=== PATIENT | female | born 1975 | race Caucasian/White ===

== ENCOUNTER → 2018-08-08 | Outpatient (CLI) | payer OTHER ==
--- NOTE | 2018-08-08 16:56 | KCIC ---
MRI Cervical Spine Without Contrast History: Cervicalgia, progressive neck pain into the shoulders and scapula Technique: Multiplanar, multi sequential noncontrast MR imaging was performed of the cervical spine. Comparison: None Findings: There is motion degradation even for repeated images. Cervical vertebral body stature is overall maintained. There is straightening of the cervical spine. Cervical cord caliber is within normal limits, no obvious expansile signal change, limited evaluation for subtle signal change due to motion. There is a small focus of nonspecific fluid at the inferior margin of adenoids, does not directly abut the spine, about 1.4 cm CC by 0.4 cm AP. There is mild degenerative disc disease C5-6. There is negligible anterior spondylolisthesis C3-4. There is no significant marrow edema. There is posterior annular tear at C5-6. There is very mild cervical dextroscoliosis. As seen on axial T2 sequence image 32 series 12, not fully included, there is an approximate 1.9 cm AP by 1.3 cm transverse focus of T2 hyperintense signal posterior right paraspinous soft tissues near the level of T1 and T2. C2-C3: Spinal canal and neural foramina are adequate. C3-C4: Spinal canal and neural foramina are adequate. C4-C5: Neural foramina and spinal canal are adequate. C5-C6: There is negligible posterior right paracentral protrusion measuring about 1 to 2 mm AP, spinal canal adequate. Neural foramina are adequate. C6-C7: Neural foramina and spinal canal are adequate. C7-T1: Spinal canal and neural foramina are adequate. Impression: 1. There is no significant cervical spinal stenosis. There is very shallow right paracentral protrusion at C5-6 associated with annular tear. There is mild degenerative disc disease C5-6. 2. Not fully included on any of the images, there is T2 hyperintense lesion of the posterior paraspinous soft tissues near the T1-2 level concerning for underlying lesion or mass for which directed MR evaluation for soft tissue mass is recommended. Electronically signed by: Terry Petty MD (08/08/2018 4:53 PM) [email or web address]
== END | disposition home or self-care (01) ==
LOC: KCIC MRI 14:39
PROVIDERS: ATTEND Family Medicine
DX: M50.322 Other cervical disc degeneration at C5-C6 level (principal); M50.222 Other cervical disc displacement at C5-C6 level; M43.12 Spondylolisthesis, cervical region; M41.82 Other forms of scoliosis, cervical region
CPT/HCPCS: 72141

== ENCOUNTER → 2018-09-19 | Outpatient (CLI) | payer OTHER ==
--- NOTE | 2018-09-20 17:16 | KCIC ---
MRI Thoracic Spine without contrast History: Lesion at T1-T2, neck and back pain Technique: Multiplanar, multi sequential noncontrast MR imaging was performed of the thoracic spine. Comparison: Cervical spine exam August 08, 2018 Findings: There is some motion. Thoracic vertebral body stature and AP alignment are maintained. Thoracic cord caliber is within normal limits without defined or expansile signal abnormality. There is no significant focal posterior disc abnormality of the thoracic spine, no significant thoracic spinal stenosis at any level. There is no significant marrow edema. Intervertebral disc spaces are relatively preserved. There is mild S-shaped scoliosis of the thoracic spine. Thoracic neural foramina are overall adequate. As seen on previous exam, there is STIR hyperintense lesion about 1.6 cm transverse by 1.1 cm AP by 1.3 cm cc, somewhat stippled appearance. This does not result in significant invasion of adjacent muscle, located anterior to the right rhomboid major muscle. Impression: 1. There is no significant thoracic spinal stenosis or neural foramina compromise. 2. There is again lesion anterior to the right rhomboid muscle. While nonspecific, primary consideration would be a hemangioma given overall appearance. If there is pain referable to this region, follow-up to assess stability could be performed such as in 6 months. Electronically signed by: Terry Petty MD (09/20/2018 5:13 PM) [email or web address]
== END | disposition home or self-care (01) ==
LOC: KCIC MRI 16:27
PROVIDERS: ATTEND Family Medicine
DX: M41.84 Other forms of scoliosis, thoracic region (principal)
CPT/HCPCS: 72146

== ENCOUNTER 2018-12-22 11:16 | Inpatient (IN) | payer OTHER ==
[~2018-12-22] VITALS: Ht 157.5 cm; Wt 107.7 kg
[2018-12-22] MEDS ORDERED: PROCHLORPERAZINE 10 MG/2 ML VIAL. IV PRN (13:15)
[2018-12-22] MEDS ORDERED: ONDANSETRON ODT 4 MG TAB.RAPDIS. PO PRN (13:15)
--- NOTE | 2018-12-22 13:15 | PDOC1 ---
History and Physical Date of Admission Date of Admission DATE: 12/22/18 TIME: 13:15 Identification/Chief Complaint Chief Complaint Abdominal pain, fevers Source Source: Patient History of Present Illness History of Present Illness Ms Crowell is a 43 yo F w/ PMHx hypothyroidism, anemia admitted to [place] with 3-4 day history of chest pain as well as elevated temperatures upwards of 103 at home. Found with fever of 102.4F. Had elevated d dimer and underwent CTPA that was negative for PE, and was seen by cardiology, ruled out TX. She initially c/o chest pain was 10/10 that was pleuritic. She was complaining of wheezing and tightness. The patient unfortunately does continue to smoke and she has been recommended numerous times to stop smoking. The patient had multiple other complaints including a severe headache, underwent CT head which was negative. Otherwise, patient is complaining of some nausea and generalized abdominal pain 10/10. The patient was advised to transfer to facility where GI and ID services were available. Past Medical History Cardiovascular: No pertinent hx Pulmonary: No pertinent hx GI: No pertinent hx Heme/Onc: Anemia NOS Hepatobiliary: No pertinent hx Psych: No pertinent hx Infectious disease: No pertinent hx ENT: No pertinent hx Renal/: No pertinent hx Endocrine: Hypothyroidism Dermatology: No pertinent hx Past Surgical History Past Surgical History: Appendectomy, Cholecystectomy, (x2), Tubal Ligation Family History Family History: Asthma (Mother), Coronary Artery Disease (Mother) Social History Smoke: 1 pack per day ALCOHOL: rare Drugs: None Allergies Allergies: Coded Allergies: Penicillins (Verified Allergy, Intermediate, rash, 12/22/18) clindamycin (Verified Allergy, Intermediate, rash, 12/22/18) ROS General: YES: Fatigue, Malaise, Appetite; No: Chills, Night Sweats, Other PSYCHOLOGICAL ROS: YES: Anxiety, Behavioral Disorder; No: Concentration difficultie, Decreased libido, Depression, Disorientation, Hallucinations, Hostility, Irritablity, Memory difficulties, Mood Swings, Obsessive thoughts, Physical abuse, Sexual abuse, Sleep disturbances, Suicidal ideation, Other Eyes: No Blurry vision, No Decreased vision, No Double vision, No Dry eyes, No Excessive tearing, No Eye Pain, No Itchy Eyes, No Loss of vision, No Photophobia, No Scotomata, No Uses contacts, No Uses glasses, No Other HEENT: YES: Heacaches; No: Visual Changes, Hearing change, Nasal congestion, Nasal discharge, Oral lesions, Sinus pain, Sore Throat, Epistaxis, Sneezing, Snoring, Tinnitus, Vertigo, Vocal changes, Other ALLERGY AND IMMUNOLOGY: No: Hives, Insect Bite Sensitivity, Itchy/Watery Eyes, Nasal Congestion, Post Nasal Drip, Seasonal Allergies, Other Hematological and Lymphatic: No: Bleeding Problems, Blood Clots, Blood Transfusions, Brusing, Night Sweats, Pallor, Swollen Lymph Nodes, Other ENDOCRINE: No: Breast Changes, Galactorrhea, Hair Pattern Changes, Hot Flashes, Malaise/lethargy, Mood Swings, Palpitations, Polydipsia/polyuria, Skin Changes, Temperature Intolerance, Unexpected Weight Changes, Other Breast: No New/Changing Breast Lumps, No Nipple changes, No Nipple discharge, No Other Respiratory: No: Cough, Hemoptysis, Orthopnea, Pleuritic Pain, Shortness of breath, SOB with excertion, Sputum Changes, Stridor, Tachypnea, Wheezing, Other Cardiovascular: yes Chest Pain; No Palpitations, No Orthopnea, No Paroxysmal Noc. Dyspnea, No Edema, No Lt Headedness, No Other Gastrointestinal: Yes Nausea, Yes Abdominal Pain; No Vomiting, No Diarrhea, No Constipation, No Melena, No Hematochezia, No Other Genitourinary: No Dysuria, No Frequency, No Incontinence, No Hematuria, No Retention, No Discharge, No Urgency, No Pain, No Flank Pain, No Other, No , No , No , No , No , No , No Musculoskeletal: No Gait Disturbance, No Joint Pain, No Joint Stiffness, No Joint Swelling, No Muscle Pain, No Muscular Weakness, No Pain In:, No Swelling In:, No Other Neurological: No Behavorial Changes, No Bowel/Bladder ControlChng, No Confusion, No Dizziness, No Gait Disturbance, No Headaches, No Impaired Coord/balance, No Memory Loss, No Numbness/Tingling, No Seizures, No Speech Problems, No Tremors, No Visual Changes, No Weakness, No Other Skin: No Dry Skin, No Eczema, No Hair Changes, No Lumps, No Mole Changes, No Mottling, No Nail Changes, No Pruritus, No Rash, No Skin Lesion Changes, No Other, No Acne VTE Prophylaxis Ordered VTE Prophylaxis Devices: No VTE Pharmacological Prophylaxi: Yes Assessment/Plan Assessment/Plan A/P: Chest pain - ruled out TX Fevers/chills - flu negative. Symptoms sound suspicious for mononucleosis, will check EBV and CMV Hypothyroidism - nearly full replacement with 150mcg daily Anemia - on chronic iron therapy Elevated transaminases - concerning for mono. GI consulted Splenomegaly - noted on CT UTI - on empiric antibiotics for the past 2 days Family history of CAD - noted Sepsis of unknown etiology Abdominal discomfort with nausea FEN - NPO PPX - lovenox FULL CODE Dispo - inpatient for fever and abdominal pain RADHA KUNZ MD Dec 22, 2018 13:15
[2018-12-22 13:31] VITALS: BP 131/96
--- NOTE | 2018-12-22 14:25 | PDOC2 ---
GI CONSULT Reason For Consult: intractable abd pain HPI: HPI: 43 y/o female sent from [facility]. Ill since "before Wednesday" with fever, cough, aching sides, midchest and upper abd discomfort, and n/v. Can't keep anything down - even apple juice this morning. Was told she would have a scope today and if that's not happening she wants a drink. She is very concerned that she hasn't taking her thyroid or iron pills for two days. She just wants to feel better - "I am impatient." No reflux or dysphagia. No hematemesis, hematochezia, or melena. Occasional constipation related to iron improved w/ stool softeners. No diarrhea or weight loss. No chronic GI issues. Has some bruising in lower abdomen "from blood thinner shots." S/p cholecystectomy for stones. No liver, pancreas, or PUD history. H/o AMI on iron TID. No previous EGD or colonoscopy. H/o irregular/heavy periods "sometimes." Recent cardiac workup (echo for abnormal EKG she says) was un revealing. Normal Hgb (last checked 12/20), normal WBC. Bili 2.8, direct 0.6, AST 98, ALT 144, Alk Phos 114, TSH 6. Viral Hepatitis panel negative. CTA chest for elevated d-dimer w/o PE and noted splenomegaly. CT A/P showed splenomegaly, fullness of left adnexa, probable left liver cyst. PMH: PMH: anemia, hypothyroidism, pneumonia appendectomy, cholecystectomy, x 2, tubal ligation FH: Family History: No pertinent hx (deneis GI cancers), CAD Social History: Smoke: No ALCOHOL: none Drugs: None ROS: GEN: +fever HEENT: Denies blurred vision, sore throat CV: +chest pain RESP: +cough GI: Per HPI : Denies hematuria, dysuria ENDO: Denies weight changes NEURO: Denies confusion, dizziness MSK: Denies weakness, joint pain/swelling SKIN: Denies jaundice, pruritus Vitals: Vitals: Vital Signs Date Time Temp Pulse Resp B/P (MAP) Pulse Ox O2 Delivery O2 Flow Rate FiO2 12/22/18 13:31 99.7 82 18 131/96 (108) 96 Room Air 99.7 Allergies: Coded Allergies: Penicillins (Verified Allergy, Intermediate, rash, 12/22/18) clindamycin (Verified Allergy, Intermediate, rash, 12/22/18) Medications: Current Medications Medications (Trade) Dose Ordered Sig/Nancy Route PRN Reason Start Time Stop Time Status Last Admin Dose Admin Prochlorperazine Edisylate (Compazine) 10 mg PRN Q6HRS PRN IV NAUSEA/VOMITING 12/22/18 13:15 12/22/18 14:18 PE: GEN: occasional retching in emesis basin HEENT: Atraumatic, PERRL LUNGS: CTAB HEART: RRR ABD: obese - difficult exam due to sitting/retching - tenderness to left side EXTREMITY: No edema SKIN: No rashes, no jaundice NEURO/PSYCH: A & O 3, tearful A/P: A/P: Fever, abd pain, n/v, cough Elevated LFTs, splenomegaly H/o AMI - no previous 'scopes, on iron TID CRC screen - average risk S/p cholecystectomy -- Very emotional, doesn't feel well. Abd US ordered. Check EBV, CMV. Will proceed w/ EGD as well. GLADYS PHILIPPE Dec 22, 2018 14:25
[2018-12-22 15:00] VITALS: BP 151/99
[2018-12-22] MEDS: ENOXAPARIN 40 MG/0.4 ML SYRINGE. SQ SCH (15:00)
[2018-12-22] MEDS ORDERED: IV RINGERS,LACTATED 1000ML 1,000 ML IV ONE ×2 (15:45)
[2018-12-22 15:52] LABS: MONONUCLEOSIS PATIENT NEGATIVE (NEGATIVE)
[2018-12-22 16:10] LABS: ALBUMIN 3.1 g/dL (3.4-5.0); ALBUMIN/GLOBULIN RATIO 0.7 (1.0-1.7); CALCIUM 8.3 mg/dL (8.5-10.1); CREATININE 0.9 mg/dL (0.6-1.0); GFR 68.7; POTASSIUM 3.9 mmol/L (3.5-5.1); TOTAL BILIRUBIN 1.1 mg/dL (0.2-1.0); TOTAL PROTEIN 7.8 g/dL (6.4-8.2)
--- NOTE | 2018-12-22 16:15 | RAD ---
ABDOMEN COMPLETE History: Acute abdominal pain. Comparison: CT December 11, 2018. Technique: Sonographic examination of the abdomen was performed and multiple grayscale and color Doppler static images were obtained. Findings: Hyperechoic lesion within the left hepatic lobe measures 2.2 x 2.1 x 2.3 cm. The liver measures 18.5 cm. Portal flow is patent Common bile duct is normal in caliber, measuring 3.3 mm in diameter. Prior cholecystectomy. Visualized pancreas is not well seen due to overlying bowel gas. The right kidney is normal in echotexture and measures 12.4 x 4.6 x 5.4 cm. The left kidney is normal in echotexture and measures 14.0 x 5.5 x 6.0 cm. No hydronephrosis. No solid renal mass or cyst. No calculus. The spleen measures 16.7 cm. Aorta and IVC not well seen due to overlying bowel gas. IMPRESSION: 1. Hepatosplenomegaly. 2. Hyperechoic liver lesion, most likely hemangioma. 3. Prior cholecystectomy. Electronically signed by: Alejandro Hackett DO (12/22/2018 4:12 PM) [facility]
[2018-12-22] MEDS ORDERED: LIDOCAINE 1% PF 2 ML VIAL. ONE (16:40)
[2018-12-22] MEDS ORDERED: PROPOFOL 20 ML IV ONE (16:40)
--- NOTE | 2018-12-22 17:11 | PDOC4 ---
PROCEDURE Procedure EGD/biopsies Indication: N, V. H/o anemia on iron w/o w/u. Meds: per anesthesia. Findings: E--multiple small patches entire esophagus ~1mm each suggestive of infectious esophagitis, biopsied. G--Normal. Antral biopsies re: her anemia D--Normal to second portion. Biopsies second portion. Mehnaz well. IMP: Infectious esophagitis? Biopsies pending. Some GERD element. REC: PPI Await biopsies, other test results. OK to try diet. CAMILA HTOMAS MD Dec 22, 2018 17:11
[2018-12-22] MEDS: PANTOPRAZOLE 40 MG TABLET.DR. PO SCH (17:30)
[2018-12-22 19:00] VITALS: BP 135/92
[2018-12-22] MEDS: IPRATRPIUM/ALBUTEROL 0.5/2.5MG 3 ML NEBU. NEB SCH ×2 (19:53→19:54)
[2018-12-22] MEDS: TEMAZEPAM 15 MG CAPSULE PO SCH (20:42)
[2018-12-22] MEDS: ACETAMINOPHEN 325 MG TABLET. PO PRN (22:16)
[2018-12-22 23:00] VITALS: BP 161/106
[2018-12-23 03:00] VITALS: BP 145/99
[2018-12-23] MEDS: LEVOTHYROXINE 150 MCG TABLET PO SCH (06:45)
[2018-12-23] MEDS: ACETAMINOPHEN 325 MG TABLET. PO PRN ×3 (06:45→18:52)
[2018-12-23 07:00] VITALS: BP 128/87
[2018-12-23] MEDS: IPRATRPIUM/ALBUTEROL 0.5/2.5MG 3 ML NEBU. NEB SCH ×4 (07:38→19:53)
--- NOTE | 2018-12-23 08:15 | NUR ---
SW following pt for dc planning. Chart reviewed. Pt lives at home with family. GI following. No SW needs identified at this time. Will continue to follow as needed.
[2018-12-23] MEDS: IRON POLYSACCHARIDE COMPLEX 150 MG CAPSULE PO SCH (09:13)
[2018-12-23] MEDS: PANTOPRAZOLE 40 MG TABLET.DR. PO SCH (09:14)
--- NOTE | 2018-12-23 10:45 | PDOC ---
Infectious Disease Note Vital Sign Vital Signs Vital Signs Date Time Temp Pulse Resp B/P (MAP) Pulse Ox O2 Delivery O2 Flow Rate FiO2 12/23/18 07:40 99 Room Air 12/23/18 07:00 99.7 91 20 128/87 (101) 99.7 12/22/18 17:08 2 Labs Lab Laboratory Tests Test 12/22/18 15:10 Sodium Level 138 mmol/L (136-145) Potassium Level 3.9 mmol/L (3.5-5.1) Chloride Level 103 mmol/L (98-107) Carbon Dioxide Level 26 mmol/L (21-32) Anion Gap 9 (6-14) Blood Urea Nitrogen 11 mg/dL (7-20) Creatinine 0.9 mg/dL (0.6-1.0) Estimated GFR (Cockcroft-Gault) 68.7 BUN/Creatinine Ratio 12 (6-20) Glucose Level 102 mg/dL (70-99) Calcium Level 8.3 mg/dL (8.5-10.1) Total Bilirubin 1.1 mg/dL (0.2-1.0) Aspartate Amino Transf (AST/SGOT) 268 U/L (15-37) Alanine Aminotransferase (ALT/SGPT) 332 U/L (14-59) Alkaline Phosphatase 150 U/L (46-116) Total Protein 7.8 g/dL (6.4-8.2) Albumin 3.1 g/dL (3.4-5.0) Albumin/Globulin Ratio 0.7 (1.0-1.7) Heterophil Agglutinins Negative (NEGATIVE) Objective Assessment Fever ? Viral Transaminitis Hepatosplenomegaly Abx allergies - PCN - tolerates amox. Clinda - rash Hypothyroidism Esophageal plaques Plan Plan of Care Azithromycin Sed rate/Procalcitonin Resp viral panel Check EBV/CMV serologies /Legionella antigen/mycoplasma F/u labs and U/S [facility] notes reviewed Thank you # [id number] BASHIR SALAZAR MD Dec 23, 2018 10:45
[2018-12-23 11:00] VITALS: BP 135/90
[2018-12-23] MEDS ORDERED: AZITHROMYCIN 250 MG TABLET. PO ONE (11:00)
--- NOTE | 2018-12-23 11:37 | RAD ---
PELVIS COMPLETE History: Left adnexal cyst. Comparison: None. Technique: Grayscale and color Doppler imaging of the pelvis was performed using transabdominal technique. Patient refused transvaginal imaging. Findings: The uterus measures 10.0 x 6.3 x 4.4 cm in length. Limited visualization on transabdominal technique. Endometrium not well seen. Bilateral ovaries not identified due to overlying bowel gas and positioning. IMPRESSION: 1. Degraded evaluation on transabdominal imaging. Patient refused transvaginal imaging. 2. Bilateral ovaries and endometrium not well identified. If persistent clinical concern recommend transvaginal imaging. Electronically signed by: Alejandro Hackett DO (12/23/2018 11:34 AM) [facility]
--- NOTE | 2018-12-23 12:38 | PDOC ---
G I PROGRESS NOTE Subjective Left-sided pain, positional/worse if coughs. Nauseated and taking po poorly. Denies odynophagia. Physical Exam Lungs clear. RRR Abdomen soft, not distended. Review of Relevant I have reviewed the following items debora (where applicable) has been applied. Labs Laboratory Tests Test 12/22/18 15:10 Sodium Level 138 mmol/L (136-145) Potassium Level 3.9 mmol/L (3.5-5.1) Chloride Level 103 mmol/L (98-107) Carbon Dioxide Level 26 mmol/L (21-32) Anion Gap 9 (6-14) Blood Urea Nitrogen 11 mg/dL (7-20) Creatinine 0.9 mg/dL (0.6-1.0) Estimated GFR (Cockcroft-Gault) 68.7 BUN/Creatinine Ratio 12 (6-20) Glucose Level 102 mg/dL (70-99) Calcium Level 8.3 mg/dL (8.5-10.1) Total Bilirubin 1.1 mg/dL (0.2-1.0) Aspartate Amino Transf (AST/SGOT) 268 U/L (15-37) Alanine Aminotransferase (ALT/SGPT) 332 U/L (14-59) Alkaline Phosphatase 150 U/L (46-116) Total Protein 7.8 g/dL (6.4-8.2) Albumin 3.1 g/dL (3.4-5.0) Albumin/Globulin Ratio 0.7 (1.0-1.7) Heterophil Agglutinins Negative (NEGATIVE) Laboratory Tests Test 12/22/18 15:10 Sodium Level 138 mmol/L (136-145) Potassium Level 3.9 mmol/L (3.5-5.1) Chloride Level 103 mmol/L (98-107) Carbon Dioxide Level 26 mmol/L (21-32) Anion Gap 9 (6-14) Blood Urea Nitrogen 11 mg/dL (7-20) Creatinine 0.9 mg/dL (0.6-1.0) Estimated GFR (Cockcroft-Gault) 68.7 BUN/Creatinine Ratio 12 (6-20) Glucose Level 102 mg/dL (70-99) Calcium Level 8.3 mg/dL (8.5-10.1) Total Bilirubin 1.1 mg/dL (0.2-1.0) Aspartate Amino Transf (AST/SGOT) 268 U/L (15-37) Alanine Aminotransferase (ALT/SGPT) 332 U/L (14-59) Alkaline Phosphatase 150 U/L (46-116) Total Protein 7.8 g/dL (6.4-8.2) Albumin 3.1 g/dL (3.4-5.0) Albumin/Globulin Ratio 0.7 (1.0-1.7) Heterophil Agglutinins Negative (NEGATIVE) Bili down. LFT's about the same. Biopsies pending. Vitals/I & O Vital Sign - Last 24 Hours 12/22/18 12/22/18 12/22/18 12/22/18 13:31 15:00 15:32 17:08 Temp 99.7 99.8 100.2 101.0 99.7 99.8 100.2 101.0 Pulse 82 85 87 89 Resp 18 18 18 20 B/P (MAP) 131/96 (108) 151/99 (116) 132/83 Pulse Ox 96 96 94 96 O2 Delivery Room Air Room Air Nasal Cannula O2 Flow Rate 2 12/22/18 12/22/18 12/22/18 12/22/18 17:19 19:00 19:54 23:00 Temp 99.6 100.5 99.6 100.5 Pulse 88 92 103 Resp 20 20 24 B/P (MAP) 141/78 135/92 (106) 161/106 (124) Pulse Ox 92 95 97 94 O2 Delivery Room Air Room Air Room Air Room Air 12/23/18 12/23/18 12/23/18 12/23/18 03:00 07:00 07:40 11:00 Temp 99.8 99.7 100.5 99.8 99.7 100.5 Pulse 90 91 85 Resp 20 20 16 B/P (MAP) 145/99 (114) 128/87 (101) 135/90 (105) Pulse Ox 94 92 99 93 O2 Delivery Room Air Room Air Room Air Room Air 12/23/18 11:24 Pulse Ox 99 O2 Delivery Room Air Intake and Output 12/22/18 12/22/18 12/23/18 15:00 23:00 07:00 Intake Total 520 ml 500 ml Balance 520 ml 500 ml Problem List Problems Medical Problems: (1) Anemia Status: Chronic (2) CAD (coronary artery disease) Status: Chronic (3) Chest pain Status: Acute (4) Chills with fever Status: Acute (5) Elevated transaminase level Status: Chronic (6) Hypothyroidism Status: Chronic (7) Sepsis Status: Acute (8) Splenomegaly Status: Acute (9) UTI (urinary tract infection) Status: Acute Assessment Viral esophagitis? Suspect mono-like syndrome, serologies pending. Some GERD component. AMI, chronic Poor po intake; needs IVF's? Plan of Care Note Continue PPI. IVF's if not adequate po. Await biopsies, pending serologies. CAMILA THOMAS MD Dec 23, 2018 12:38
[2018-12-23] MEDS ORDERED: IV DEXTROSE 5 %-0.45 % NACL 1,000 ML IV SCH (13:30)
[2018-12-23] MEDS: IV DEXTROSE 5 %-0.45 % NACL 1,000 ML IV SCH ×2 (13:32→21:42)
[2018-12-23 14:28] LABS: MYCOPLASMA PATIENT NEGATIVE (NEGATIVE)
[2018-12-23 15:00] VITALS: BP 120/74
[2018-12-23] MEDS: ENOXAPARIN 40 MG/0.4 ML SYRINGE. SQ SCH (15:00)
--- NOTE | 2018-12-23 15:39 | RAD ---
RIBS LEFT History: Left-sided rib pain. Technique: 4 views of the left ribs. Comparison: None. Findings: Normal alignment. No displaced rib fractures. Imaged lungs are unremarkable. Surgical clips right upper quadrant. Impression: 1. No displaced rib fractures. Electronically signed by: Alejandro Hackett DO (12/23/2018 3:36 PM) [facility]
--- NOTE | 2018-12-23 15:58 | PDOC ---
PROGRESS NOTES Chief Complaint Chief Complaint Chest pain - ruled out [place] myalgia, consider MONO Fevers/chills - flu negative pending EBV and CMV Hypothyroidism - Anemia - on chronic iron therapy Elevated transaminases - concerning for mono. GI consulted Splenomegaly - could be source of pain UTI - on empiric antibiotics SIRS Abdominal discomfort with nausea obese, BMI 44 History of Present Illness History of Present Illness weakness, lethargy, nausea, myalgia, mono clinically she had many questions Vitals Vitals Vital Signs Date Time Temp Pulse Resp B/P (MAP) Pulse Ox O2 Delivery O2 Flow Rate FiO2 12/23/18 15:53 98 Room Air 12/23/18 11:00 100.5 85 16 135/90 (105) 100.5 12/22/18 17:08 2 Physical Exam General: Oriented X3, Cooperative, mild distress Heart: Normal S1 Lungs: Wheezing Extremities: No cyanosis Labs LABS Laboratory Tests Test 12/23/18 12:00 Erythrocyte Sedimentation Rate 58 (0-25) Procalcitonin 0.17 ng/mL (0.00-0.10) Mycoplasma Serology (LAB) Negative (NEGATIVE) Assessment and Plan Assessmemt and Plan Problems Medical Problems: (1) Anemia Status: Chronic (2) CAD (coronary artery disease) Status: Chronic (3) Chest pain Status: Acute (4) Chills with fever Status: Acute (5) Elevated transaminase level Status: Chronic (6) Hypothyroidism Status: Chronic (7) Sepsis Status: Acute (8) Splenomegaly Status: Acute (9) UTI (urinary tract infection) Status: Acute Comment Review of Relevant I have reviewed the following items debora (where applicable) has been applied. Labs Laboratory Tests Test 12/22/18 15:10 12/23/18 12:00 Sodium Level 138 mmol/L (136-145) Potassium Level 3.9 mmol/L (3.5-5.1) Chloride Level 103 mmol/L (98-107) Carbon Dioxide Level 26 mmol/L (21-32) Anion Gap 9 (6-14) Blood Urea Nitrogen 11 mg/dL (7-20) Creatinine 0.9 mg/dL (0.6-1.0) Estimated GFR (Cockcroft-Gault) 68.7 BUN/Creatinine Ratio 12 (6-20) Glucose Level 102 mg/dL (70-99) Calcium Level 8.3 mg/dL (8.5-10.1) Total Bilirubin 1.1 mg/dL (0.2-1.0) Aspartate Amino Transf (AST/SGOT) 268 U/L (15-37) Alanine Aminotransferase (ALT/SGPT) 332 U/L (14-59) Alkaline Phosphatase 150 U/L (46-116) Total Protein 7.8 g/dL (6.4-8.2) Albumin 3.1 g/dL (3.4-5.0) Albumin/Globulin Ratio 0.7 (1.0-1.7) Heterophil Agglutinins Negative (NEGATIVE) Erythrocyte Sedimentation Rate 58 (0-25) Procalcitonin 0.17 ng/mL (0.00-0.10) Mycoplasma Serology (LAB) Negative (NEGATIVE) Laboratory Tests Test 12/23/18 12:00 Erythrocyte Sedimentation Rate 58 (0-25) Procalcitonin 0.17 ng/mL (0.00-0.10) Mycoplasma Serology (LAB) Negative (NEGATIVE) Medications Current Medications Prochlorperazine Edisylate (Compazine) 10 mg PRN Q6HRS PRN IV NAUSEA/VOMITING Last administered on 12/22/18at 14:18; Start 12/22/18 at 13:15 Ondansetron HCl (Zofran Odt) 4 mg PRN Q6HRS PRN PO NAUSEA/VOMITING Last administered on 12/22/18at 20:43; Start 12/22/18 at 13:15 Albuterol/ Ipratropium (Duoneb) 3 ml RTQID NEB Last administered on 12/23/18at 15:53; Start 12/22/18 at 16:00 Acetaminophen (Tylenol) 650 mg PRN Q4HRS PRN PO TEMP OVER 100.4F OR MILD PAIN Last administered on 12/23/18at 13:25; Start 12/22/18 at 13:30 Enoxaparin Sodium (Lovenox 40mg Syringe) 40 mg Q24H SQ ; Start 12/22/18 at 15:00 Levothyroxine Sodium (Synthroid) 150 mcg DAILY06 PO Last administered on 12/23/18at 06:45; Start 12/23/18 at 06:00 Polysaccharide Iron Complex (Niferex 150) 150 mg DAILY PO Last administered on 12/23/18at 09:13; Start 12/23/18 at 09:00 Ringer's Solution 1,000 ml @ 75 mls/hr 1X ONCE IV ; Start 12/22/18 at 15:45; Stop 12/22/18 at 17:20; Status DC Ringer's Solution 1,000 ml @ 75 mls/hr 1X ONCE IV ; Start 12/22/18 at 15:45; Stop 12/22/18 at 17:20; Status DC Propofol 20 ml @ As Directed STK-MED ONCE IV ; Start 12/22/18 at 16:40; Stop 12/22/18 at 16:40; Status DC Lidocaine HCl (Xylocaine-Mpf 1% 2ml Vial) 2 ml STK-MED ONCE .ROUTE ; Start 12/22/18 at 16:40; Stop 12/22/18 at 16:40; Status DC Pantoprazole Sodium (Protonix) 40 mg DAILYAC PO Last administered on 12/23/18at 09:14; Start 12/22/18 at 17:30 Temazepam (Restoril) 15 mg HS PO Last administered on 12/22/18at 20:42; Start 12/22/18 at 21:00 Azithromycin (Zithromax) 500 mg 1X ONCE PO Last administered on 12/23/18at 13:25; Start 12/23/18 at 11:00; Stop 12/23/18 at 11:01; Status DC Oxycodone/ Acetaminophen (Percocet 5/325) 1 tab PRN Q4HRS PRN PO PAIN; Start 12/23/18 at 11:30 Dextrose/Sodium Chloride 1,000 ml @ 150 mls/hr Q6H40M IV ; Start 12/23/18 at 13:30 Dextrose/Sodium Chloride 1,000 ml @ 150 mls/hr Q6H40M IV ; Start 12/23/18 at 13:30; Stop 12/23/18 at 13:33; Status DC Vitals/I & O Vital Sign - Last 24 Hours 12/22/18 12/22/18 12/22/18 12/22/18 17:08 17:19 19:00 19:54 Temp 101.0 99.6 101.0 99.6 Pulse 89 88 92 Resp 20 20 20 B/P (MAP) 132/83 141/78 135/92 (106) Pulse Ox 96 92 95 97 O2 Delivery Nasal Cannula Room Air Room Air Room Air O2 Flow Rate 2 12/22/18 12/23/18 12/23/18 12/23/18 23:00 03:00 07:00 07:40 Temp 100.5 99.8 99.7 100.5 99.8 99.7 Pulse 103 90 91 Resp 24 20 20 B/P (MAP) 161/106 (124) 145/99 (114) 128/87 (101) Pulse Ox 94 94 92 99 O2 Delivery Room Air Room Air Room Air Room Air 12/23/18 12/23/18 12/23/18 11:00 11:24 15:53 Temp 100.5 100.5 Pulse 85 Resp 16 B/P (MAP) 135/90 (105) Pulse Ox 93 99 98 O2 Delivery Room Air Room Air Room Air Intake and Output 12/22/18 12/22/18 12/23/18 15:00 23:00 07:00 Intake Total 520 ml 500 ml Balance 520 ml 500 ml JOSE DE JESUS MOSQUERA MD Dec 23, 2018 15:58
--- NOTE | 2018-12-23 16:52 | CONS ---
DATE OF CONSULTATION: 12/23/2018 INFECTIOUS DISEASE CONSULTATION PATIENT'S ROOM: 572. REQUESTING PHYSICIAN: Tung Gray MD. REASON FOR CONSULTATION: FUO. HISTORY OF PRESENT ILLNESS: The patient is a pleasant 43-year-old female who states approximately the or so of November, she began to feel ill. She states she was exposed to a number of coworkers at work. 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 She was admitted to [facility] from the 12/09 to 12/12 and worked up for atypical chest pain. Did not find any inciting reason. She went home, she began to have some fevers. She was seen in the outpatient setting again, was told that she probably had a viral process, although she was not tested for influenza and at home, she began to take Tylenol, ibuprofen and Aleve, [place] and tried to stay hydrated with Gatorade water; however, she continued to worsen and developed cough, shortness of air and ongoing fever. She presented to [facility]. She had a white count of 5.2 with 52 segs, 1 band and 31 lymphs. Urinalysis was obtained as well as blood cultures and urine cultures, which were negative. Urine drug screen as well as test was negative. Influenza and strep and hepatitis panels were negative as well as blood cultures. She underwent lower extremity Dopplers that were negative. She underwent a CTA, which showed mild splenomegaly. She had a previous echo which showed an EF of 55%-60% with trace mitral and tricuspid valve regurgitation. She was placed on levofloxacin and Rocephin. Despite the antimicrobials, she continued to have some low-grade fevers and she was transferred to [facility] for further care and evaluation. On the , she underwent an EGD and was found to have multiple small patches of the entire esophagus, 1 mm each suggestive of infectious esophagitis and underwent a biopsies. She has not received any additional antimicrobials since her transfer. PAST MEDICAL HISTORY: Positive for anemia, history of hypothyroidism. PAST SURGICAL HISTORY: Positive for cholecystectomy, appendectomy, x 2 and tubal ligation. REVIEW OF SYSTEMS: Negative for any rashes, no joint complications. No dysuria, frequency or urgency. She does have some bruises from Lovenox injections. She is complaining of ongoing cough which is dry in nature and has some pain associated with cough. SOCIAL HISTORY: She was born in [place], but she has lived in [place] for over 20 years as well as [place]. She has not traveled outside of the country. She had been only to [place]. She has not traveled overseas. She quit smoking quite some time ago. No alcohol. No . Again, works in a warehouse, previously did work in a alf. She states she has had multiple TB tests that were negative. She gets them checked every year. Denies any known exposures. She has two kids, ages 14 and 18, both are healthy. She also has a dog, no birds, no fish, no rodents. FAMILY HISTORY: Positive for thyroid disease. Mother had a myocardial infarction, hypertension, hyperlipidemia and some obesity. Father is healthy. She denies any known diabetes or cancers in the family. CURRENT MEDICATIONS: Include Tylenol, Lovenox, albuterol, Atrovent, Synthroid, Protonix, Compazine, and Restoril. ALLERGIES: SHE IS ALLERGIC TO PENICILLIN but she has tolerated amoxicillin, CLINDAMYCIN CAUSES RASH. PHYSICAL EXAMINATION: VITAL SIGNS: T-max 100.5, currently 99.7, pulse 91, respirations 20, blood pressure 128/87, satting 99% on room air. CONSTITUTIONAL: She was sitting in a chair. She is cooperative, no acute distress. HEENT: Pupils equal and reactive. Normal conjunctivae. Oral cavity, pharynx was clear. NECK: Supple. Good range of motion. LUNGS: Clear to auscultation. HEART: S1, S2. ABDOMEN: Obese, soft, no guarding. Mild tenderness in the left side. EXTREMITIES: No clubbing or cyanosis, with trace edema. SKIN: Warm to touch. Joints are not inflamed. NEUROLOGIC: She is nonfocal and appropriate. PSYCHIATRIC: Affect is appropriate. LABORATORY VALUES: Yesterday, creatinine 0.9, glucose 102, AST 268, ALT 332, alkaline phosphatase 150. Serology was negative for ____ glutens. Ultrasound showed hepatosplenomegaly, most likely a hemangioma, prior cholecystectomy. Abdominal pelvis transvaginal ultrasound is pending. IMPRESSION: 1. Fever, questionable viral. 2. Transaminitis. 3. Hepatosplenomegaly. 4. Antibiotic allergies, PENICILLIN, tolerates amoxicillin, CLINDAMYCIN CAUSES RASH. 5. Hypothyroidism. 6. Esophageal plaques. RECOMMENDATIONS: We will dose azithromycin. Obtain sed rate as well as procalcitonin. Obtain a respiratory viral panel. Check EBV, CMV, serologies and Legionella antigen. Follow up labs and cultures. We will also check Mycoplasma. [facility] notes were reviewed. Follow up with ultrasound. This was discussed with Dr. Montgomery. Thank you for allowing me to participate in the patient's care. If you have any questions, please do not hesitate to contact me. BASHIR SALAZAR MD DR: LUDY/yaneth JOB#: [id number] / [id number]
--- NOTE | 2018-12-23 18:03 | PDOC ---
PULMONARY PROGRESS NOTES Vitals Vital Signs Date Time Temp Pulse Resp B/P (MAP) Pulse Ox O2 Delivery O2 Flow Rate FiO2 12/23/18 15:53 98 Room Air 12/23/18 15:00 101.2 86 16 120/74 (89) 101.2 12/22/18 17:08 2 Lungs: Wheezing Labs Laboratory Tests Test 12/22/18 15:10 12/23/18 12:00 Sodium Level 138 mmol/L (136-145) Potassium Level 3.9 mmol/L (3.5-5.1) Chloride Level 103 mmol/L (98-107) Carbon Dioxide Level 26 mmol/L (21-32) Anion Gap 9 (6-14) Blood Urea Nitrogen 11 mg/dL (7-20) Creatinine 0.9 mg/dL (0.6-1.0) Estimated GFR (Cockcroft-Gault) 68.7 BUN/Creatinine Ratio 12 (6-20) Glucose Level 102 mg/dL (70-99) Calcium Level 8.3 mg/dL (8.5-10.1) Total Bilirubin 1.1 mg/dL (0.2-1.0) Aspartate Amino Transf (AST/SGOT) 268 U/L (15-37) Alanine Aminotransferase (ALT/SGPT) 332 U/L (14-59) Alkaline Phosphatase 150 U/L (46-116) Total Protein 7.8 g/dL (6.4-8.2) Albumin 3.1 g/dL (3.4-5.0) Albumin/Globulin Ratio 0.7 (1.0-1.7) Cytomegalovirus IgG Antibody 0.62 U/mL (0.00-0.59) Cytomegalovirus IgM Antibody >240.0 AU/mL (0.0-29.9) Heterophil Agglutinins Negative (NEGATIVE) Erythrocyte Sedimentation Rate 58 (0-25) Procalcitonin 0.17 ng/mL (0.00-0.10) Mycoplasma Serology (LAB) Negative (NEGATIVE) Laboratory Tests Test 12/23/18 12:00 Erythrocyte Sedimentation Rate 58 (0-25) Procalcitonin 0.17 ng/mL (0.00-0.10) Mycoplasma Serology (LAB) Negative (NEGATIVE) Impression . FULL NOTE DICTATED CTA NO PE NO INFILTRATES FEVER WORK UP PER BUTCH NAVA MD Dec 23, 2018 18:03
[2018-12-23 19:00] VITALS: BP 133/82
[2018-12-23] MEDS: TEMAZEPAM 15 MG CAPSULE PO SCH (21:42)
[2018-12-23] MEDS: oxyCODONE/APAP 5/325 1 TAB TABLET PO PRN (21:48)
[2018-12-23 23:04] VITALS: BP 129/78
[2018-12-23 23:18] LABS: BASO # 0.1 x10^3/uL (0.0-0.2); BASO % 1 % (0-3); EOS # 0.1 x10^3/uL (0.0-0.7); EOS % 1 % (0-3); HEMATOCRIT 32.9 % (36.0-47.0); HEMOGLOBIN 11.4 g/dL (12.0-15.5); LYMPH # 2.8 x10^3/uL (1.0-4.8); LYMPH % 45 % (24-48); MEAN CORPUSCULAR HEMOGLOBIN 31 pg (25-35); MEAN CORPUSCULAR HGB CONC 35 g/dL (31-37); MEAN CORPUSCULAR VOLUME 89 fL (79-100); MONO # 0.5 x10^3/uL (0.0-1.1); MONO % 8 % (0-9); NEUT # 2.8 x10^3/uL (1.8-7.7); NEUT % 45 % (31-73); PLATELET COUNT 176 x10^3/uL (140-400); RED CELL DISTRIBUTION WIDTH 15.4 % (11.5-14.5); WHITE BLOOD COUNT 6.2 x10^3/uL (4.0-11.0)
[2018-12-23 23:43] LABS: % ATYL 7 % (0-0); % BANDS 3 % (0-9); % BASOS 2 % (0-3); % LYMPHS 33 % (24-48); % MONOS 7 % (0-10); % SEGS 48 % (35-66)
[2018-12-23 23:48] LABS: ANISOCYTOSIS SLIGHT; PLT ESTIMATE ADEQUATE (ADEQUATE); POLYCHROMASIA MOD; TOXIC GRANULATION SLIGHT
--- NOTE | 2018-12-24 00:59 | CONS ---
DATE OF CONSULTATION: 12/23/2018 ATTENDING PHYSICIAN: Tung Gray MD. REASON FOR CONSULTATION: The patient seen in pulmonary consultation at the request of Dr. Gray for cough. HISTORY OF PRESENT ILLNESS: The patient is a 43-year-old that has been sick now for approximately a week. She was actually admitted at [facility]. She has been having a fever. She is currently being worked up for fever of unknown origin. She has some chest pain, has temperature at home. She was found to have a fever of 102.4. D-dimer was elevated. Underwent CTA, which was negative for pulmonary embolism, I reviewed it, there are no infiltrates. The patient now is complaining of a cough. She has been seen by Infectious Disease Service. Serology for the possibility of fever related to a viral infection is currently pending. PAST MEDICAL AND PAST SURGICAL HISTORY: Remarkable for appendectomy, cholecystectomy, . No prior history of some asthma or COPD. She tried smoking for less than a month. FAMILY HISTORY: Mother with asthma and coronary artery disease. ALLERGIES: TO PENICILLIN AND CLINDAMYCIN. REVIEW OF SYSTEMS: As indicated above. Otherwise, a 10-point system was reviewed and negative. The patient denies any recent travel. No tick bites. CURRENT MEDICATIONS: List was reviewed. PHYSICAL EXAMINATION: GENERAL: The patient was a morbidly obese individual with a body mass index of 43. T-max is 101.2. HEENT: Eyes: The sclerae were nonicteric. NECK: Jugular venous distention could not be assessed secondary to body habitus. CHEST: Full expansion. LUNGS: Adequate airway flow with no wheezes. CARDIOVASCULAR: Regular rate and rhythm with S1, S2, no S3. ABDOMEN: Obese. EXTREMITIES: No significant edema. NEUROLOGIC: The patient was awake, alert, following commands. A detailed neuro exam was not performed. LABORATORY DATA: Serology for viral infection is currently pending. She did have elevated CMV IgG and IgM. Sed rate was 58. Electrolytes were noted. Chemistries were elevated. Procalcitonin is 0.17. IMPRESSION: 1. Cough, secondary to post-viral infection. 2. Fever, workup per Infectious Disease. CMV serology is positive. 3. Hypothyroidism. 4. Anemia. 5. Elevated liver chemistries. 6. CT angiogram revealing no evidence of pulmonary emboli. PLAN: Doubt that fever is arising from pulmonary origin, we will follow along. Infectious Disease Service has ordered some serology for Jeremiah-Mckinney, which is pending. Her mycoplasma Serology was negative. The CMV IgG and IgM are both elevated. Suspect fevers related to cytomegalovirus. We will defer to ID for further input. I do appreciate the privilege in sharing in the patient's care. BUTCH DOBBS MD DR: AARON/yaneth JOB#: [id number] / [id number]
[2018-12-24] MEDS: oxyCODONE/APAP 5/325 1 TAB TABLET PO PRN ×2 (01:49→21:20)
[2018-12-24] MEDS: IV DEXTROSE 5 %-0.45 % NACL 1,000 ML IV SCH ×3 (02:54→17:42)
[2018-12-24 03:26] VITALS: BP 121/80
[2018-12-24] MEDS: LEVOTHYROXINE 150 MCG TABLET PO SCH (06:09)
[2018-12-24] MEDS: ACETAMINOPHEN 325 MG TABLET. PO PRN (06:10)
[2018-12-24 07:00] VITALS: BP 134/79
--- NOTE | 2018-12-24 07:20 | PDOC ---
Infectious Disease Note Subjective Subjective Still some fever and sweats. Mouth feels dry Worried about Nausea but not currently No SOA/Rash or joint ached ROS ROS o/w neg Vital Sign Vital Signs Vital Signs Date Time Temp Pulse Resp B/P (MAP) Pulse Ox O2 Delivery O2 Flow Rate FiO2 12/24/18 03:26 99.8 89 20 121/80 (94) 97 Nasal Cannula 99.8 12/24/18 02:54 2.0 Physical Exam PHYSICAL EXAM CONSTITUTIONAL: She is in bed She is cooperative, no acute distress. HEENT: Pupils equal and reactive. Normal conjunctivae. Oral cavity, pharynx was clear. NECK: Supple. Good range of motion. LUNGS: Clear to auscultation. HEART: S1, S2. ABDOMEN: Obese, soft, no guarding. Mild tenderness in the left side. EXTREMITIES: No clubbing or cyanosis, with trace edema. SKIN: Warm to touch. Joints are not inflamed. NEUROLOGIC: She is nonfocal and appropriate. PSYCHIATRIC: Affect is appropriate Labs Lab Laboratory Tests Test 12/23/18 12:00 12/23/18 23:10 Erythrocyte Sedimentation Rate 58 (0-25) Procalcitonin 0.17 ng/mL (0.00-0.10) Mycoplasma Serology (LAB) Negative (NEGATIVE) White Blood Count 6.2 x10^3/uL (4.0-11.0) Red Blood Count 3.70 x10^6/uL (3.50-5.40) Hemoglobin 11.4 g/dL (12.0-15.5) Hematocrit 32.9 % (36.0-47.0) Mean Corpuscular Volume 89 fL (79-100) Mean Corpuscular Hemoglobin 31 pg (25-35) Mean Corpuscular Hemoglobin Concent 35 g/dL (31-37) Red Cell Distribution Width 15.4 % (11.5-14.5) Platelet Count 176 x10^3/uL (140-400) Neutrophils (%) (Auto) 45 % (31-73) Lymphocytes (%) (Auto) 45 % (24-48) Monocytes (%) (Auto) 8 % (0-9) Eosinophils (%) (Auto) 1 % (0-3) Basophils (%) (Auto) 1 % (0-3) Neutrophils # (Auto) 2.8 x10^3/uL (1.8-7.7) Lymphocytes # (Auto) 2.8 x10^3/uL (1.0-4.8) Monocytes # (Auto) 0.5 x10^3/uL (0.0-1.1) Eosinophils # (Auto) 0.1 x10^3/uL (0.0-0.7) Basophils # (Auto) 0.1 x10^3/uL (0.0-0.2) Segmented Neutrophils % 48 % (35-66) Band Neutrophils % 3 % (0-9) Lymphocytes % 33 % (24-48) Atypical Lymphocytes % (Manual) 7 % (0-0) Monocytes % 7 % (0-10) Basophils % 2 % (0-3) Toxic Granulation Slight Platelet Estimate Adequate (ADEQUATE) Polychromasia Mod Anisocytosis Slight Lactic Acid Level 1.2 mmol/L (0.4-2.0) Objective Assessment CMV + IGM Fever ? Viral from above Transaminitis - ? viral Hepatosplenomegaly refused TV U/S Abx allergies - PCN - tolerates amox. Clinda - rash Hypothyroidism Esophageal plaques Rib pain ? sec from cough - XRAY - neg Plan Plan of Care Trial of IV Gancyclovir and if settles down convert to po labs in am F/u Resp viral panel F/u EBV serologies /Legionella antigen/mycoplasma [facility] notes reviewed BASHIR SALAZAR MD Dec 24, 2018 07:20
[2018-12-24] MEDS: IPRATRPIUM/ALBUTEROL 0.5/2.5MG 3 ML NEBU. NEB SCH ×4 (07:41→20:27)
[2018-12-24] MEDS: CHLORHEXIDINE 0.12% 15 ML MOUTHWASH. SWSP SCH ×2 (08:48→21:19)
[2018-12-24] MEDS: PANTOPRAZOLE 40 MG TABLET.DR. PO SCH (08:48)
[2018-12-24] MEDS: DEXTROSE 5% IV SCH ×2 (08:48→21:22)
[2018-12-24] MEDS: IRON POLYSACCHARIDE COMPLEX 150 MG CAPSULE PO SCH (08:48)
[2018-12-24] MEDS: GANCICLOVIR SODIUM IV SCH ×2 (08:48→21:22)
[2018-12-24] MEDS ORDERED: guaiFENesin DM 200MG/20MG 10 ML SYRUP PO PRN (09:00)
[2018-12-24] MEDS ORDERED: ONDANSETRON PF 4 MG/2 ML VIAL. IVP PRN (09:00)
[2018-12-24] MEDS ORDERED: CALCIUM CARBONATE 500 MG TAB.CHEW PO PRN (09:00)
[2018-12-24] MEDS ORDERED: TEMAZEPAM 7.5 MG CAPSULE PO PRN (09:00)
[2018-12-24] MEDS ORDERED: BENZOCAINE/MENTHOL LOZENGE. PO PRN (09:00)
[2018-12-24] MEDS ORDERED: CETIRIZINE HCL 10 MG TABLET. PO PRN (09:00)
[2018-12-24] MEDS ORDERED: ALBUTEROL SULFATE 2.5 MG/3 ML NEBU. NEB PRN (09:00)
[2018-12-24 09:10] LABS: EBNA IGG >600.0 U/mL (0.0-17.9)
--- NOTE | 2018-12-24 10:50 | PDOC ---
PROGRESS NOTES Chief Complaint Chief Complaint Acute viral infection - gancyclovir per ID Chest pain - ruled out MD myalgia, consider MONO Fevers/chills - flu negative pending EBV and CMV Hypothyroidism - Obesity Anemia - on chronic iron therapy Elevated transaminases - concerning for mono. GI consulted Splenomegaly - could be source of pain UTI - on empiric antibiotics SIRS Abdominal discomfort with nausea obese, BMI 44 History of Present Illness History of Present Illness Aches and pain everywhere mostly left side now weakness, lethargy, nausea, myalgia, she had many questions ON iv gancyclovir per ID STill 102. 4 temp eating ok though PLAN: IV antiviral I added some miscellaneous meds, cepastat, lidoderm patch, h1 antag, mucinex etc REcheck procalcitonin tmr TSH check GI cocktail etc Vitals Vitals Vital Signs Date Time Temp Pulse Resp B/P (MAP) Pulse Ox O2 Delivery O2 Flow Rate FiO2 12/24/18 07:44 96 Nasal Cannula 2.0 12/24/18 07:00 102.4 95 20 134/79 (97) 102.4 Physical Exam Physical Exam CONSTITUTIONAL: She is in bed She is cooperative, no acute distress. HEENT: Pupils equal and reactive. Normal conjunctivae. Oral cavity, pharynx was clear. NECK: Supple. Good range of motion. LUNGS: Clear to auscultation. HEART: S1, S2. ABDOMEN: Obese, soft, no guarding. Mild tenderness in the left side. EXTREMITIES: No clubbing or cyanosis, with trace edema. SKIN: Warm to touch. Joints are not inflamed. NEUROLOGIC: She is nonfocal and appropriate. PSYCHIATRIC: Affect is appropriate General: Oriented X3, Cooperative, mild distress Heart: Normal S1 Lungs: Wheezing Extremities: No cyanosis Labs LABS Laboratory Tests Test 12/23/18 12:00 12/23/18 23:10 Erythrocyte Sedimentation Rate 58 (0-25) Procalcitonin 0.17 ng/mL (0.00-0.10) Mycoplasma Serology (LAB) Negative (NEGATIVE) White Blood Count 6.2 x10^3/uL (4.0-11.0) Red Blood Count 3.70 x10^6/uL (3.50-5.40) Hemoglobin 11.4 g/dL (12.0-15.5) Hematocrit 32.9 % (36.0-47.0) Mean Corpuscular Volume 89 fL (79-100) Mean Corpuscular Hemoglobin 31 pg (25-35) Mean Corpuscular Hemoglobin Concent 35 g/dL (31-37) Red Cell Distribution Width 15.4 % (11.5-14.5) Platelet Count 176 x10^3/uL (140-400) Neutrophils (%) (Auto) 45 % (31-73) Lymphocytes (%) (Auto) 45 % (24-48) Monocytes (%) (Auto) 8 % (0-9) Eosinophils (%) (Auto) 1 % (0-3) Basophils (%) (Auto) 1 % (0-3) Neutrophils # (Auto) 2.8 x10^3/uL (1.8-7.7) Lymphocytes # (Auto) 2.8 x10^3/uL (1.0-4.8) Monocytes # (Auto) 0.5 x10^3/uL (0.0-1.1) Eosinophils # (Auto) 0.1 x10^3/uL (0.0-0.7) Basophils # (Auto) 0.1 x10^3/uL (0.0-0.2) Segmented Neutrophils % 48 % (35-66) Band Neutrophils % 3 % (0-9) Lymphocytes % 33 % (24-48) Atypical Lymphocytes % (Manual) 7 % (0-0) Monocytes % 7 % (0-10) Basophils % 2 % (0-3) Toxic Granulation Slight Platelet Estimate Adequate (ADEQUATE) Polychromasia Mod Anisocytosis Slight Lactic Acid Level 1.2 mmol/L (0.4-2.0) Review of Systems Review of Systems aches, pains everywhere, febrile, nausea but no emesis, no diarrhea, no cp, no psych issues Assessment and Plan Assessmemt and Plan Problems Medical Problems: (1) Anemia Status: Chronic (2) CAD (coronary artery disease) Status: Chronic (3) Chest pain Status: Acute (4) Chills with fever Status: Acute (5) Elevated transaminase level Status: Chronic (6) Hypothyroidism Status: Chronic (7) Sepsis Status: Acute (8) Splenomegaly Status: Acute (9) UTI (urinary tract infection) Status: Acute Comment Review of Relevant I have reviewed the following items debora (where applicable) has been applied. Labs Laboratory Tests Test 12/22/18 15:10 12/23/18 12:00 12/23/18 23:10 Sodium Level 138 mmol/L (136-145) Potassium Level 3.9 mmol/L (3.5-5.1) Chloride Level 103 mmol/L (98-107) Carbon Dioxide Level 26 mmol/L (21-32) Anion Gap 9 (6-14) Blood Urea Nitrogen 11 mg/dL (7-20) Creatinine 0.9 mg/dL (0.6-1.0) Estimated GFR (Cockcroft-Gault) 68.7 BUN/Creatinine Ratio 12 (6-20) Glucose Level 102 mg/dL (70-99) Calcium Level 8.3 mg/dL (8.5-10.1) Total Bilirubin 1.1 mg/dL (0.2-1.0) Aspartate Amino Transf (AST/SGOT) 268 U/L (15-37) Alanine Aminotransferase (ALT/SGPT) 332 U/L (14-59) Alkaline Phosphatase 150 U/L (46-116) Total Protein 7.8 g/dL (6.4-8.2) Albumin 3.1 g/dL (3.4-5.0) Albumin/Globulin Ratio 0.7 (1.0-1.7) Cytomegalovirus IgG Antibody 0.62 U/mL (0.00-0.59) Cytomegalovirus IgM Antibody >240.0 AU/mL (0.0-29.9) Jeremiah-Mckinney Virus Capsid Ag IgG Ab >600.0 U/mL (0.0-17.9) Jeremiah-Mckinney Virus Capsid Ag IgM Ab >160.0 U/mL (0.0-35.9) Jeremiah-Mckinney Early Antigen IgG Ab 137.0 U/mL (0.0-8.9) Jeremiah-Mckinney Nuc Assoc Ag IgG Index >600.0 U/mL (0.0-17.9) Jeremiah-Mckinney Virus Interpretation Comment (.) Heterophil Agglutinins Negative (NEGATIVE) Erythrocyte Sedimentation Rate 58 (0-25) Procalcitonin 0.17 ng/mL (0.00-0.10) Mycoplasma Serology (LAB) Negative (NEGATIVE) White Blood Count 6.2 x10^3/uL (4.0-11.0) Red Blood Count 3.70 x10^6/uL (3.50-5.40) Hemoglobin 11.4 g/dL (12.0-15.5) Hematocrit 32.9 % (36.0-47.0) Mean Corpuscular Volume 89 fL (79-100) Mean Corpuscular Hemoglobin 31 pg (25-35) Mean Corpuscular Hemoglobin Concent 35 g/dL (31-37) Red Cell Distribution Width 15.4 % (11.5-14.5) Platelet Count 176 x10^3/uL (140-400) Neutrophils (%) (Auto) 45 % (31-73) Lymphocytes (%) (Auto) 45 % (24-48) Monocytes (%) (Auto) 8 % (0-9) Eosinophils (%) (Auto) 1 % (0-3) Basophils (%) (Auto) 1 % (0-3) Neutrophils # (Auto) 2.8 x10^3/uL (1.8-7.7) Lymphocytes # (Auto) 2.8 x10^3/uL (1.0-4.8) Monocytes # (Auto) 0.5 x10^3/uL (0.0-1.1) Eosinophils # (Auto) 0.1 x10^3/uL (0.0-0.7) Basophils # (Auto) 0.1 x10^3/uL (0.0-0.2) Segmented Neutrophils % 48 % (35-66) Band Neutrophils % 3 % (0-9) Lymphocytes % 33 % (24-48) Atypical Lymphocytes % (Manual) 7 % (0-0) Monocytes % 7 % (0-10) Basophils % 2 % (0-3) Toxic Granulation Slight Platelet Estimate Adequate (ADEQUATE) Polychromasia Mod Anisocytosis Slight Lactic Acid Level 1.2 mmol/L (0.4-2.0) Laboratory Tests Test 12/23/18 12:00 12/23/18 23:10 Erythrocyte Sedimentation Rate 58 (0-25) Procalcitonin 0.17 ng/mL (0.00-0.10) Mycoplasma Serology (LAB) Negative (NEGATIVE) White Blood Count 6.2 x10^3/uL (4.0-11.0) Red Blood Count 3.70 x10^6/uL (3.50-5.40) Hemoglobin 11.4 g/dL (12.0-15.5) Hematocrit 32.9 % (36.0-47.0) Mean Corpuscular Volume 89 fL (79-100) Mean Corpuscular Hemoglobin 31 pg (25-35) Mean Corpuscular Hemoglobin Concent 35 g/dL (31-37) Red Cell Distribution Width 15.4 % (11.5-14.5) Platelet Count 176 x10^3/uL (140-400) Neutrophils (%) (Auto) 45 % (31-73) Lymphocytes (%) (Auto) 45 % (24-48) Monocytes (%) (Auto) 8 % (0-9) Eosinophils (%) (Auto) 1 % (0-3) Basophils (%) (Auto) 1 % (0-3) Neutrophils # (Auto) 2.8 x10^3/uL (1.8-7.7) Lymphocytes # (Auto) 2.8 x10^3/uL (1.0-4.8) Monocytes # (Auto) 0.5 x10^3/uL (0.0-1.1) Eosinophils # (Auto) 0.1 x10^3/uL (0.0-0.7) Basophils # (Auto) 0.1 x10^3/uL (0.0-0.2) Segmented Neutrophils % 48 % (35-66) Band Neutrophils % 3 % (0-9) Lymphocytes % 33 % (24-48) Atypical Lymphocytes % (Manual) 7 % (0-0) Monocytes % 7 % (0-10) Basophils % 2 % (0-3) Toxic Granulation Slight Platelet Estimate Adequate (ADEQUATE) Polychromasia Mod Anisocytosis Slight Lactic Acid Level 1.2 mmol/L (0.4-2.0) Medications Current Medications Prochlorperazine Edisylate (Compazine) 10 mg PRN Q6HRS PRN IV NAUSEA/VOMITING, 2ND CHOICE Last administered on 12/22/18at 14:18; Start 12/22/18 at 13:15 Ondansetron HCl (Zofran Odt) 4 mg PRN Q6HRS PRN PO NAUSEA/VOMITING Last administered on 12/22/18at 20:43; Start 12/22/18 at 13:15 Albuterol/ Ipratropium (Duoneb) 3 ml RTQID NEB Last administered on 12/24/18 07:41; Start 12/22/18 at 16:00 Acetaminophen (Tylenol) 650 mg PRN Q4HRS PRN PO TEMP OVER 100.4F OR MILD PAIN Last administered on 12/24/18 06:10; Start 12/22/18 at 13:30 Enoxaparin Sodium (Lovenox 40mg Syringe) 40 mg Q24H SQ ; Start 12/22/18 at 15:00 Levothyroxine Sodium (Synthroid) 150 mcg DAILY06 PO Last administered on 12/24/18at 06:09; Start 12/23/18 at 06:00 Polysaccharide Iron Complex (Niferex 150) 150 mg DAILY PO Last administered on 12/24/18 08:48; Start 12/23/18 at 09:00 Ringer's Solution 1,000 ml @ 75 mls/hr 1X ONCE IV ; Start 12/22/18 at 15:45; Stop 12/22/18 at 17:20; Status DC Ringer's Solution 1,000 ml @ 75 mls/hr 1X ONCE IV ; Start 12/22/18 at 15:45; Stop 12/22/18 at 17:20; Status DC Propofol 20 ml @ As Directed STK-MED ONCE IV ; Start 12/22/18 at 16:40; Stop 12/22/18 at 16:40; Status DC Lidocaine HCl (Xylocaine-Mpf 1% 2ml Vial) 2 ml STK-MED ONCE .ROUTE ; Start 12/22/18 at 16:40; Stop 12/22/18 at 16:40; Status DC Pantoprazole Sodium (Protonix) 40 mg DAILYAC PO Last administered on 12/24/18at 08:48; Start 12/22/18 at 17:30 Temazepam (Restoril) 15 mg HS PO Last administered on 12/23/18at 21:42; Start 12/22/18 at 21:00 Azithromycin (Zithromax) 500 mg 1X ONCE PO Last administered on 12/23/18at 13:25; Start 12/23/18 at 11:00; Stop 12/23/18 at 11:01; Status DC Oxycodone/ Acetaminophen (Percocet 5/325) 1 tab PRN Q4HRS PRN PO SEVERE PAIN Last administered on 12/24/18at 01:49; Start 12/23/18 at 11:30 Dextrose/Sodium Chloride 1,000 ml @ 150 mls/hr Q6H40M IV Last administered on 12/24/18at 02:54; Start 12/23/18 at 13:30 Dextrose/Sodium Chloride 1,000 ml @ 150 mls/hr Q6H40M IV ; Start 12/23/18 at 13:30; Stop 12/23/18 at 13:33; Status DC Ganciclovir Sodium 540 mg/ Dextrose 100 ml @ 100 mls/hr Q12HR IV Last administered on 12/24/18at 08:48; Start 12/24/18 at 09:00 Chlorhexidine Gluconate (Peridex) 15 ml BID SWSP Last administered on 12/24/18at 08:48; Start 12/24/18 at 09:00 Acetaminophen/ Hydrocodone Bitart (Lortab 5/325) 1 tab PRN Q4HRS PRN PO MODERATE; Start 12/24/18 at 09:00 Temazepam (Restoril) 7.5 mg PRN QHS PRN PO INSOMNIA; Start 12/24/18 at 09:00 Ondansetron HCl (Zofran) 4 mg PRN Q6HRS PRN IVP NAUSEA/VOMITING, 1ST CHOICE; Start 12/24/18 at 09:00 Calcium Carbonate/ Glycine (Tums) 500 mg PRN AFTMEALHC PRN PO INDIGESTION; Start 12/24/18 at 09:00 Guaifenesin (Robitussin Dm) 10 ml PRN Q6HRS PRN PO COUGH; Start 12/24/18 at 09:00 Albuterol Sulfate (Ventolin Neb Soln) 2.5 mg PRN Q4HRS PRN NEB SHORTNESS OF BREATH; Start 12/24/18 at 09:00 Cetirizine HCl (ZyrTEC) 10 mg PRN DAILY PRN PO ALLERGIES; Start 12/24/18 at 09:00 Throat Lozenges (Cepacol Sore Throat Lozenge) 1 curry PRN Q2HRS PRN PO SORE THROAT; Start 12/24/18 at 09:00 Vitals/I & O Vital Sign - Last 24 Hours 12/23/18 12/23/18 12/23/18 12/23/18 11:00 11:24 15:00 15:53 Temp 100.5 101.2 100.5 101.2 Pulse 85 86 Resp 16 16 B/P (MAP) 135/90 (105) 120/74 (89) Pulse Ox 93 99 90 98 O2 Delivery Room Air Room Air Room Air Room Air 12/23/18 12/23/18 12/23/18 12/23/18 19:00 19:30 19:54 21:48 Temp 102.2 102.2 Pulse 91 Resp 20 B/P (MAP) 133/82 (99) Pulse Ox 94 98 O2 Delivery Room Air Room Air Room Air Room Air 12/23/18 12/23/18 12/24/18 12/24/18 22:45 23:04 01:49 02:54 Temp 101.0 101.0 Pulse 87 Resp 20 B/P (MAP) 129/78 (95) Pulse Ox 97 O2 Delivery Room Air Nasal Cannula Nasal Cannula Nasal Cannula O2 Flow Rate 2.0 2.0 12/24/18 12/24/18 12/24/18 03:26 07:00 07:44 Temp 99.8 102.4 99.8 102.4 Pulse 89 95 Resp 20 20 B/P (MAP) 121/80 (94) 134/79 (97) Pulse Ox 97 97 96 O2 Delivery Nasal Cannula Nasal Cannula Nasal Cannula O2 Flow Rate 2.0 Intake and Output 12/23/18 12/23/18 12/24/18 15:00 23:00 07:00 Intake Total 360 ml 120 ml Output Total 400 ml Balance 360 ml 120 ml -400 ml BRIAN HERNANDEZ MD Dec 24, 2018 10:50
[2018-12-24 11:00] VITALS: BP 121/61
[2018-12-24] MEDS ORDERED: LIDO:MAALOX 1:1 20 ML SINGLE DOSE. PO PRN (11:00)
[2018-12-24] MEDS ORDERED: LIDO:MAALOX 1:1 20 ML SINGLE DOSE. SWSW ONE (11:00)
[2018-12-24] MEDS: LIDOCAINE (700MG/PATCH) PATCH. TD SCH (11:00)
[2018-12-24] MEDS: HYDROcodone/APAP 5/325MG 1 TAB TABLET PO PRN ×2 (11:26→15:55)
--- NOTE | 2018-12-24 12:35 | PDOC ---
G I PROGRESS NOTE Subjective Still feels poorly, but taking some clears. Physical Exam Lungs clear. RRR Abdomen soft, not tender. Review of Relevant I have reviewed the following items debora (where applicable) has been applied. Labs Laboratory Tests Test 12/22/18 15:10 12/23/18 12:00 12/23/18 23:10 12/24/18 05:00 Sodium Level 138 mmol/L (136-145) Potassium Level 3.9 mmol/L (3.5-5.1) Chloride Level 103 mmol/L (98-107) Carbon Dioxide Level 26 mmol/L (21-32) Anion Gap 9 (6-14) Blood Urea Nitrogen 11 mg/dL (7-20) Creatinine 0.9 mg/dL (0.6-1.0) Estimated GFR (Cockcroft-Gault) 68.7 BUN/Creatinine Ratio 12 (6-20) Glucose Level 102 mg/dL (70-99) Calcium Level 8.3 mg/dL (8.5-10.1) Total Bilirubin 1.1 mg/dL (0.2-1.0) Aspartate Amino Transf (AST/SGOT) 268 U/L (15-37) Alanine Aminotransferase (ALT/SGPT) 332 U/L (14-59) Alkaline Phosphatase 150 U/L (46-116) Total Protein 7.8 g/dL (6.4-8.2) Albumin 3.1 g/dL (3.4-5.0) Albumin/Globulin Ratio 0.7 (1.0-1.7) Cytomegalovirus IgG Antibody 0.62 U/mL (0.00-0.59) Cytomegalovirus IgM Antibody >240.0 AU/mL (0.0-29.9) Jeremiah-Mckinney Virus Capsid Ag IgG Ab >600.0 U/mL (0.0-17.9) Jeremiah-Mckinney Virus Capsid Ag IgM Ab >160.0 U/mL (0.0-35.9) Jeremiah-Mckinney Early Antigen IgG Ab 137.0 U/mL (0.0-8.9) Jeremiah-Mckinney Nuc Assoc Ag IgG Index >600.0 U/mL (0.0-17.9) Jeremiah-Mckinney Virus Interpretation Comment (.) Heterophil Agglutinins Negative (NEGATIVE) Erythrocyte Sedimentation Rate 58 (0-25) Procalcitonin 0.17 ng/mL (0.00-0.10) Mycoplasma Serology (LAB) Negative (NEGATIVE) White Blood Count 6.2 x10^3/uL (4.0-11.0) Red Blood Count 3.70 x10^6/uL (3.50-5.40) Hemoglobin 11.4 g/dL (12.0-15.5) Hematocrit 32.9 % (36.0-47.0) Mean Corpuscular Volume 89 fL (79-100) Mean Corpuscular Hemoglobin 31 pg (25-35) Mean Corpuscular Hemoglobin Concent 35 g/dL (31-37) Red Cell Distribution Width 15.4 % (11.5-14.5) Platelet Count 176 x10^3/uL (140-400) Neutrophils (%) (Auto) 45 % (31-73) Lymphocytes (%) (Auto) 45 % (24-48) Monocytes (%) (Auto) 8 % (0-9) Eosinophils (%) (Auto) 1 % (0-3) Basophils (%) (Auto) 1 % (0-3) Neutrophils # (Auto) 2.8 x10^3/uL (1.8-7.7) Lymphocytes # (Auto) 2.8 x10^3/uL (1.0-4.8) Monocytes # (Auto) 0.5 x10^3/uL (0.0-1.1) Eosinophils # (Auto) 0.1 x10^3/uL (0.0-0.7) Basophils # (Auto) 0.1 x10^3/uL (0.0-0.2) Segmented Neutrophils % 48 % (35-66) Band Neutrophils % 3 % (0-9) Lymphocytes % 33 % (24-48) Atypical Lymphocytes % (Manual) 7 % (0-0) Monocytes % 7 % (0-10) Basophils % 2 % (0-3) Toxic Granulation Slight Platelet Estimate Adequate (ADEQUATE) Polychromasia Mod Anisocytosis Slight Lactic Acid Level 1.2 mmol/L (0.4-2.0) Thyroid Stimulating Hormone (TSH) 10.859 uIU/mL (0.358-3.74) Laboratory Tests Test 12/23/18 23:10 12/24/18 05:00 White Blood Count 6.2 x10^3/uL (4.0-11.0) Red Blood Count 3.70 x10^6/uL (3.50-5.40) Hemoglobin 11.4 g/dL (12.0-15.5) Hematocrit 32.9 % (36.0-47.0) Mean Corpuscular Volume 89 fL (79-100) Mean Corpuscular Hemoglobin 31 pg (25-35) Mean Corpuscular Hemoglobin Concent 35 g/dL (31-37) Red Cell Distribution Width 15.4 % (11.5-14.5) Platelet Count 176 x10^3/uL (140-400) Neutrophils (%) (Auto) 45 % (31-73) Lymphocytes (%) (Auto) 45 % (24-48) Monocytes (%) (Auto) 8 % (0-9) Eosinophils (%) (Auto) 1 % (0-3) Basophils (%) (Auto) 1 % (0-3) Neutrophils # (Auto) 2.8 x10^3/uL (1.8-7.7) Lymphocytes # (Auto) 2.8 x10^3/uL (1.0-4.8) Monocytes # (Auto) 0.5 x10^3/uL (0.0-1.1) Eosinophils # (Auto) 0.1 x10^3/uL (0.0-0.7) Basophils # (Auto) 0.1 x10^3/uL (0.0-0.2) Segmented Neutrophils % 48 % (35-66) Band Neutrophils % 3 % (0-9) Lymphocytes % 33 % (24-48) Atypical Lymphocytes % (Manual) 7 % (0-0) Monocytes % 7 % (0-10) Basophils % 2 % (0-3) Toxic Granulation Slight Platelet Estimate Adequate (ADEQUATE) Polychromasia Mod Anisocytosis Slight Lactic Acid Level 1.2 mmol/L (0.4-2.0) Thyroid Stimulating Hormone (TSH) 10.859 uIU/mL (0.358-3.74) Elevated IgM anti-CMV antibodies. Vitals/I & O Vital Sign - Last 24 Hours 12/23/18 12/23/18 12/23/18 12/23/18 15:00 15:53 19:00 19:30 Temp 101.2 102.2 101.2 102.2 Pulse 86 91 Resp 16 20 B/P (MAP) 120/74 (89) 133/82 (99) Pulse Ox 90 98 94 O2 Delivery Room Air Room Air Room Air Room Air 12/23/18 12/23/18 12/23/18 12/23/18 19:54 21:48 22:45 23:04 Temp 101.0 101.0 Pulse 87 Resp 20 B/P (MAP) 129/78 (95) Pulse Ox 98 97 O2 Delivery Room Air Room Air Room Air Nasal Cannula 12/24/18 12/24/18 12/24/18 12/24/18 01:49 02:54 03:26 07:00 Temp 99.8 102.4 99.8 102.4 Pulse 89 95 Resp 20 20 B/P (MAP) 121/80 (94) 134/79 (97) Pulse Ox 97 97 O2 Delivery Nasal Cannula Nasal Cannula Nasal Cannula Nasal Cannula O2 Flow Rate 2.0 2.0 12/24/18 12/24/18 12/24/18 12/24/18 07:44 11:00 11:26 11:30 Temp 100.2 100.2 Pulse 94 Resp 20 B/P (MAP) 121/61 (81) Pulse Ox 96 96 O2 Delivery Nasal Cannula Nasal Cannula Nasal Cannula Nasal Cannula O2 Flow Rate 2.0 2.0 2.0 Intake and Output 12/23/18 12/23/18 12/24/18 15:00 23:00 07:00 Intake Total 360 ml 120 ml Output Total 400 ml Balance 360 ml 120 ml -400 ml Problem List Problems Medical Problems: (1) Anemia Status: Chronic (2) CAD (coronary artery disease) Status: Chronic (3) Chest pain Status: Acute (4) Chills with fever Status: Acute (5) Elevated transaminase level Status: Chronic (6) Hypothyroidism Status: Chronic (7) Sepsis Status: Acute (8) Splenomegaly Status: Acute (9) UTI (urinary tract infection) Status: Acute Assessment Suspect acute CMV syndrome. Plan of Care Note Await biopsies. Continue PPI, other treatment. Diet as tolerated. CAMILA THOMAS MD Dec 24, 2018 12:35
[2018-12-24 15:00] VITALS: BP 141/87
[2018-12-24 15:09] LABS: EBNA IGG >600.0 U/mL (0.0-17.9)
[2018-12-24] MEDS: ENOXAPARIN 40 MG/0.4 ML SYRINGE. SQ SCH (15:55)
--- NOTE | 2018-12-24 17:28 | PDOC ---
PULMONARY PROGRESS NOTES Subjective The patient is a 43-year-old that has been sick now for approximately a week. She was actually admitted at [facility]. She has been having a fever. She is currently being worked up for fever of unknown origin. She has some chest pain, has temperature at home. She was found to have a fever of 102.4. D-dimer was elevated. Underwent CTA, which was negative for pulmonary embolism, . The patient now is complaining of a cough. She has been seen by Infectious Disease Service. Serology for the possibility of fever related to a viral infection is currently pending. She does have a family history of asthma (mother0 and a history of coughing when around airway irritants such as tobacco smoke. Her coughing is improved with nebulized bronchodilators Vitals Vital Signs Date Time Temp Pulse Resp B/P (MAP) Pulse Ox O2 Delivery O2 Flow Rate FiO2 12/24/18 15:55 Nasal Cannula 2.0 12/24/18 15:00 101.7 90 20 141/87 (105) 96 101.7 General: Alert, Oriented X4, No acute distress Lungs: Clear Cardiovascular: S1, S2 Abdomen: Soft Neuro Exam: Alert, Oriented, Normal Speech, No Focal Findings Extremities: No Edema Labs Laboratory Tests Test 12/23/18 12:00 12/23/18 23:10 12/24/18 05:00 Erythrocyte Sedimentation Rate 58 (0-25) Procalcitonin 0.17 ng/mL (0.00-0.10) Cytomegalovirus IgG Antibody 1.10 U/mL (0.00-0.59) Cytomegalovirus IgM Antibody >240.0 AU/mL (0.0-29.9) Jeremiah-Mckinney Virus Capsid Ag IgG Ab >600.0 U/mL (0.0-17.9) Jeremiah-Mckinney Virus Capsid Ag IgM Ab >160.0 U/mL (0.0-35.9) Jeremiah-Mckinney Early Antigen IgG Ab 121.0 U/mL (0.0-8.9) Jeremiah-Mckinney Nuc Assoc Ag IgG Index >600.0 U/mL (0.0-17.9) Jeremiah-Mckinney Virus Interpretation Comment (.) Mycoplasma Serology (LAB) Negative (NEGATIVE) White Blood Count 6.2 x10^3/uL (4.0-11.0) Red Blood Count 3.70 x10^6/uL (3.50-5.40) Hemoglobin 11.4 g/dL (12.0-15.5) Hematocrit 32.9 % (36.0-47.0) Mean Corpuscular Volume 89 fL (79-100) Mean Corpuscular Hemoglobin 31 pg (25-35) Mean Corpuscular Hemoglobin Concent 35 g/dL (31-37) Red Cell Distribution Width 15.4 % (11.5-14.5) Platelet Count 176 x10^3/uL (140-400) Neutrophils (%) (Auto) 45 % (31-73) Lymphocytes (%) (Auto) 45 % (24-48) Monocytes (%) (Auto) 8 % (0-9) Eosinophils (%) (Auto) 1 % (0-3) Basophils (%) (Auto) 1 % (0-3) Neutrophils # (Auto) 2.8 x10^3/uL (1.8-7.7) Lymphocytes # (Auto) 2.8 x10^3/uL (1.0-4.8) Monocytes # (Auto) 0.5 x10^3/uL (0.0-1.1) Eosinophils # (Auto) 0.1 x10^3/uL (0.0-0.7) Basophils # (Auto) 0.1 x10^3/uL (0.0-0.2) Segmented Neutrophils % 48 % (35-66) Band Neutrophils % 3 % (0-9) Lymphocytes % 33 % (24-48) Atypical Lymphocytes % (Manual) 7 % (0-0) Monocytes % 7 % (0-10) Basophils % 2 % (0-3) Toxic Granulation Slight Platelet Estimate Adequate (ADEQUATE) Polychromasia Mod Anisocytosis Slight Lactic Acid Level 1.2 mmol/L (0.4-2.0) Thyroid Stimulating Hormone (TSH) 10.859 uIU/mL (0.358-3.74) Laboratory Tests Test 12/23/18 23:10 12/24/18 05:00 White Blood Count 6.2 x10^3/uL (4.0-11.0) Red Blood Count 3.70 x10^6/uL (3.50-5.40) Hemoglobin 11.4 g/dL (12.0-15.5) Hematocrit 32.9 % (36.0-47.0) Mean Corpuscular Volume 89 fL (79-100) Mean Corpuscular Hemoglobin 31 pg (25-35) Mean Corpuscular Hemoglobin Concent 35 g/dL (31-37) Red Cell Distribution Width 15.4 % (11.5-14.5) Platelet Count 176 x10^3/uL (140-400) Neutrophils (%) (Auto) 45 % (31-73) Lymphocytes (%) (Auto) 45 % (24-48) Monocytes (%) (Auto) 8 % (0-9) Eosinophils (%) (Auto) 1 % (0-3) Basophils (%) (Auto) 1 % (0-3) Neutrophils # (Auto) 2.8 x10^3/uL (1.8-7.7) Lymphocytes # (Auto) 2.8 x10^3/uL (1.0-4.8) Monocytes # (Auto) 0.5 x10^3/uL (0.0-1.1) Eosinophils # (Auto) 0.1 x10^3/uL (0.0-0.7) Basophils # (Auto) 0.1 x10^3/uL (0.0-0.2) Segmented Neutrophils % 48 % (35-66) Band Neutrophils % 3 % (0-9) Lymphocytes % 33 % (24-48) Atypical Lymphocytes % (Manual) 7 % (0-0) Monocytes % 7 % (0-10) Basophils % 2 % (0-3) Toxic Granulation Slight Platelet Estimate Adequate (ADEQUATE) Polychromasia Mod Anisocytosis Slight Lactic Acid Level 1.2 mmol/L (0.4-2.0) Thyroid Stimulating Hormone (TSH) 10.859 uIU/mL (0.358-3.74) Impression . 1. Cough variant asthma 2. fever, possible viral infection. refer to ID note Plan . Agree with nebulized albuterol. I would be hesitant to use systemic steroids for this until the fever and infectious issues are resolved. Will follow. ROSALBA MAURO MD Dec 24, 2018 17:28
[2018-12-24 19:00] VITALS: BP 144/84
[2018-12-24] MEDS ORDERED: PATCH REMOVAL. MC SCH (21:00)
[2018-12-24] MEDS: TEMAZEPAM 15 MG CAPSULE PO SCH (21:19)
[2018-12-24 23:02] VITALS: BP 103/60
[2018-12-25] MEDS: HYDROcodone/APAP 5/325MG 1 TAB TABLET PO PRN ×2 (01:10→19:52)
[2018-12-25] MEDS: IV DEXTROSE 5 %-0.45 % NACL 1,000 ML IV SCH ×2 (01:11→05:21)
[2018-12-25] MEDS: oxyCODONE/APAP 5/325 1 TAB TABLET PO PRN ×5 (01:20→22:24)
[2018-12-25 03:05] VITALS: BP 92/49
[2018-12-25 04:56] LABS: BASO % 1 % (0-3); EOS # 0.1 x10^3/uL (0.0-0.7); EOS % 1 % (0-3); HEMATOCRIT 31.4 % (36.0-47.0); LYMPH % 54 % (24-48); MEAN CORPUSCULAR HEMOGLOBIN 31 pg (25-35); MEAN CORPUSCULAR HGB CONC 35 g/dL (31-37); MEAN CORPUSCULAR VOLUME 89 fL (79-100); MONO # 0.5 x10^3/uL (0.0-1.1); MONO % 9 % (0-9); NEUT % 36 % (31-73); PLATELET COUNT 157 x10^3/uL (140-400); RED BLOOD COUNT 3.54 x10^6/uL (3.50-5.40); RED CELL DISTRIBUTION WIDTH 15.5 % (11.5-14.5); WHITE BLOOD COUNT 5.7 x10^3/uL (4.0-11.0)
[2018-12-25] MEDS: LEVOTHYROXINE 150 MCG TABLET PO SCH (05:21)
[2018-12-25 06:17] LABS: ALBUMIN 2.6 g/dL (3.4-5.0); ALBUMIN/GLOBULIN RATIO 0.7 (1.0-1.7); CALCIUM 7.7 mg/dL (8.5-10.1); CREATININE 0.9 mg/dL (0.6-1.0); GFR 68.7; POTASSIUM 3.7 mmol/L (3.5-5.1); TOTAL BILIRUBIN 0.8 mg/dL (0.2-1.0); TOTAL PROTEIN 6.5 g/dL (6.4-8.2)
[2018-12-25 07:00] VITALS: BP 110/64
--- NOTE | 2018-12-25 07:07 | PDOC ---
Infectious Disease Note Subjective Subjective Still some fever and sweats. Mouth feels dry but better No nausea Still has a MITTAL - no caffine for a week but only had a cup a day No SOA/Rash or joint ached Vital Sign Vital Signs Vital Signs Date Time Temp Pulse Resp B/P (MAP) Pulse Ox O2 Delivery O2 Flow Rate FiO2 12/25/18 06:21 Nasal Cannula 12/25/18 05:21 2.0 12/25/18 03:05 100.3 102 20 92/49 (63) 92 100.3 Physical Exam PHYSICAL EXAM CONSTITUTIONAL: She is in bed She is cooperative, no acute distress. HEENT: Pupils equal and reactive. EOMI - no gross photophobia. Normal conjunctivae. Oral cavity, pharynx was clear. NECK: Supple. Good range of motion. No nucchal rigidity LUNGS: Clear to auscultation. HEART: S1, S2. ABDOMEN: Obese, soft, no guarding. NT EXTREMITIES: No clubbing or cyanosis, with trace edema. SKIN: Warm to touch. Joints are not inflamed. NEUROLOGIC: She is nonfocal and appropriate. PSYCHIATRIC: Affect is appropriate Labs Lab Laboratory Tests Test 12/25/18 04:30 White Blood Count 5.7 x10^3/uL (4.0-11.0) Red Blood Count 3.54 x10^6/uL (3.50-5.40) Hemoglobin 11.0 g/dL (12.0-15.5) Hematocrit 31.4 % (36.0-47.0) Mean Corpuscular Volume 89 fL (79-100) Mean Corpuscular Hemoglobin 31 pg (25-35) Mean Corpuscular Hemoglobin Concent 35 g/dL (31-37) Red Cell Distribution Width 15.5 % (11.5-14.5) Platelet Count 157 x10^3/uL (140-400) Neutrophils (%) (Auto) 36 % (31-73) Lymphocytes (%) (Auto) 54 % (24-48) Monocytes (%) (Auto) 9 % (0-9) Eosinophils (%) (Auto) 1 % (0-3) Basophils (%) (Auto) 1 % (0-3) Neutrophils # (Auto) 2.0 x10^3/uL (1.8-7.7) Lymphocytes # (Auto) 3.0 x10^3/uL (1.0-4.8) Monocytes # (Auto) 0.5 x10^3/uL (0.0-1.1) Eosinophils # (Auto) 0.1 x10^3/uL (0.0-0.7) Basophils # (Auto) 0.0 x10^3/uL (0.0-0.2) Sodium Level 137 mmol/L (136-145) Potassium Level 3.7 mmol/L (3.5-5.1) Chloride Level 102 mmol/L (98-107) Carbon Dioxide Level 29 mmol/L (21-32) Anion Gap 6 (6-14) Blood Urea Nitrogen 5 mg/dL (7-20) Creatinine 0.9 mg/dL (0.6-1.0) Estimated GFR (Cockcroft-Gault) 68.7 BUN/Creatinine Ratio 6 (6-20) Glucose Level 113 mg/dL (70-99) Calcium Level 7.7 mg/dL (8.5-10.1) Total Bilirubin 0.8 mg/dL (0.2-1.0) Aspartate Amino Transf (AST/SGOT) 80 U/L (15-37) Alanine Aminotransferase (ALT/SGPT) 187 U/L (14-59) Alkaline Phosphatase 104 U/L (46-116) Total Protein 6.5 g/dL (6.4-8.2) Albumin 2.6 g/dL (3.4-5.0) Albumin/Globulin Ratio 0.7 (1.0-1.7) Micro Microbiology 12/24/18 Blood Culture - Preliminary, Resulted NO GROWTH AFTER 1 DAY Objective Assessment CMV and EBV + serologies - both 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 Viral from above resp viral panel - neg Transaminitis - ? viral better today MITTAL - ? fever vs viral Hepatosplenomegaly refused TV U/S Abx allergies - PCN - tolerates amox. Clinda - rash Hypothyroidism Esophageal plaques Rib pain ? sec from cough - XRAY - neg Plan Plan of Care Trial of IV Gancyclovir and if settles down convert to po Will add CMV Quantitative PCR - blood - Unable to perform EBV serum PCR as not approved and will need approval Wednesday if still wanted- d/w lab labs in am F/u Legionella antigen D/w nursing [facility] notes reviewed BASHIR SALAZAR MD Dec 25, 2018 07:07
[2018-12-25] MEDS: IPRATRPIUM/ALBUTEROL 0.5/2.5MG 3 ML NEBU. NEB SCH ×4 (08:17→19:41)
[2018-12-25] MEDS ORDERED: LEVOTHYROXINE 100 MCG TABLET PO SCH (08:30)
[2018-12-25] MEDS: LIDOCAINE (700MG/PATCH) PATCH. TD SCH (08:45)
[2018-12-25] MEDS: GANCICLOVIR SODIUM IV SCH ×2 (08:46→21:11)
[2018-12-25] MEDS: PANTOPRAZOLE 40 MG TABLET.DR. PO SCH (08:46)
[2018-12-25] MEDS: IRON POLYSACCHARIDE COMPLEX 150 MG CAPSULE PO SCH (08:46)
[2018-12-25] MEDS: DEXTROSE 5% IV SCH ×2 (08:46→21:11)
[2018-12-25] MEDS: CHLORHEXIDINE 0.12% 15 ML MOUTHWASH. SWSP SCH ×2 (08:46→21:10)
[2018-12-25] MEDS ORDERED: IBUPROFEN 400 MG TABLET. PO PRN (09:15)
--- NOTE | 2018-12-25 09:19 | PDOC ---
PROGRESS NOTES Chief Complaint Chief Complaint Acute viral infection, CMV - gancyclovir per ID Chest pain - ruled out ND myalgia, consider MONO Fevers/chills - flu negative pending EBV and CMV Hypothyroidism - on synthroid and claims compliance Obesity Anemia - on chronic iron therapy Elevated transaminases - concerning for mono. GI consulted Splenomegaly - could be source of pain UTI - on empiric antibiotics SIRS Abdominal discomfort with nausea obese, BMI 44 History of Present Illness History of Present Illness FEver pattern improving T100.3, but Still feels unwell Aches and pain everywhere'refuses lidoderm patch among others HAs not ambulated, told her she can/should She can also shower weakness, lethargy, nausea, myalgia, she had many questions ON iv gancyclovir per ID eating ok though TSH 10!, on synthroid 150 mcg and claims compliance, mentions PCP checks this and is always "good" PLAN: IV ganciclovor and i added lots of supprotive meds wednesday ADd PT OT bec she wont ambulate by herself COnt synthroid 150mcg - recheck 6-8 weeks (levels 10 - taken in acute ciral setting, may not be reliable) Vitals Vitals Vital Signs Date Time Temp Pulse Resp B/P (MAP) Pulse Ox O2 Delivery O2 Flow Rate FiO2 12/25/18 08:18 97 Nasal Cannula 1.0 12/25/18 07:00 99.1 81 18 110/64 (79) 99.1 Physical Exam Physical Exam CONSTITUTIONAL: She is in bed She is cooperative, no acute distress. HEENT: Pupils equal and reactive. EOMI - no gross photophobia. Normal conjunctivae. Oral cavity, pharynx was clear. NECK: Supple. Good range of motion. No nucchal rigidity LUNGS: Clear to auscultation. HEART: S1, S2. ABDOMEN: Obese, soft, no guarding. NT EXTREMITIES: No clubbing or cyanosis, with trace edema. SKIN: Warm to touch. Joints are not inflamed. NEUROLOGIC: She is nonfocal and appropriate. PSYCHIATRIC: Affect is appropriate General: Oriented X3, Cooperative, mild distress Heart: Normal S1 Lungs: Clear Extremities: No cyanosis Labs LABS Laboratory Tests Test 12/25/18 04:30 White Blood Count 5.7 x10^3/uL (4.0-11.0) Red Blood Count 3.54 x10^6/uL (3.50-5.40) Hemoglobin 11.0 g/dL (12.0-15.5) Hematocrit 31.4 % (36.0-47.0) Mean Corpuscular Volume 89 fL (79-100) Mean Corpuscular Hemoglobin 31 pg (25-35) Mean Corpuscular Hemoglobin Concent 35 g/dL (31-37) Red Cell Distribution Width 15.5 % (11.5-14.5) Platelet Count 157 x10^3/uL (140-400) Neutrophils (%) (Auto) 36 % (31-73) Lymphocytes (%) (Auto) 54 % (24-48) Monocytes (%) (Auto) 9 % (0-9) Eosinophils (%) (Auto) 1 % (0-3) Basophils (%) (Auto) 1 % (0-3) Neutrophils # (Auto) 2.0 x10^3/uL (1.8-7.7) Lymphocytes # (Auto) 3.0 x10^3/uL (1.0-4.8) Monocytes # (Auto) 0.5 x10^3/uL (0.0-1.1) Eosinophils # (Auto) 0.1 x10^3/uL (0.0-0.7) Basophils # (Auto) 0.0 x10^3/uL (0.0-0.2) Sodium Level 137 mmol/L (136-145) Potassium Level 3.7 mmol/L (3.5-5.1) Chloride Level 102 mmol/L (98-107) Carbon Dioxide Level 29 mmol/L (21-32) Anion Gap 6 (6-14) Blood Urea Nitrogen 5 mg/dL (7-20) Creatinine 0.9 mg/dL (0.6-1.0) Estimated GFR (Cockcroft-Gault) 68.7 BUN/Creatinine Ratio 6 (6-20) Glucose Level 113 mg/dL (70-99) Calcium Level 7.7 mg/dL (8.5-10.1) Total Bilirubin 0.8 mg/dL (0.2-1.0) Aspartate Amino Transf (AST/SGOT) 80 U/L (15-37) Alanine Aminotransferase (ALT/SGPT) 187 U/L (14-59) Alkaline Phosphatase 104 U/L (46-116) Total Protein 6.5 g/dL (6.4-8.2) Albumin 2.6 g/dL (3.4-5.0) Albumin/Globulin Ratio 0.7 (1.0-1.7) Review of Systems Review of Systems weak, aches pain,s headache, myalgias etc, fever, no cp, some back pain, no abd pain, n,.v.d Assessment and Plan Assessmemt and Plan Problems Medical Problems: (1) Anemia Status: Chronic (2) CAD (coronary artery disease) Status: Chronic (3) Chest pain Status: Acute (4) Chills with fever Status: Acute (5) Elevated transaminase level Status: Chronic (6) Hypothyroidism Status: Chronic (7) Sepsis Status: Acute (8) Splenomegaly Status: Acute (9) UTI (urinary tract infection) Status: Acute Comment Review of Relevant I have reviewed the following items debora (where applicable) has been applied. Labs Laboratory Tests Test 12/23/18 12:00 12/23/18 13:15 12/23/18 23:10 12/24/18 05:00 Erythrocyte Sedimentation Rate 58 (0-25) Procalcitonin 0.17 ng/mL (0.00-0.10) Cytomegalovirus IgG Antibody 1.10 U/mL (0.00-0.59) Cytomegalovirus IgM Antibody >240.0 AU/mL (0.0-29.9) Jeremiah-Mckinney Virus Capsid Ag IgG Ab >600.0 U/mL (0.0-17.9) Jeremiah-Mckinney Virus Capsid Ag IgM Ab >160.0 U/mL (0.0-35.9) Jeremiah-Mckinney Early Antigen IgG Ab 121.0 U/mL (0.0-8.9) Jeremiah-Mckinnye Nuc Assoc Ag IgG Index >600.0 U/mL (0.0-17.9) Jeremiah-Mckinney Virus Interpretation Comment (.) Mycoplasma Serology (LAB) Negative (NEGATIVE) Miscellaneous Test Comment (.) White Blood Count 6.2 x10^3/uL (4.0-11.0) Red Blood Count 3.70 x10^6/uL (3.50-5.40) Hemoglobin 11.4 g/dL (12.0-15.5) Hematocrit 32.9 % (36.0-47.0) Mean Corpuscular Volume 89 fL (79-100) Mean Corpuscular Hemoglobin 31 pg (25-35) Mean Corpuscular Hemoglobin Concent 35 g/dL (31-37) Red Cell Distribution Width 15.4 % (11.5-14.5) Platelet Count 176 x10^3/uL (140-400) Neutrophils (%) (Auto) 45 % (31-73) Lymphocytes (%) (Auto) 45 % (24-48) Monocytes (%) (Auto) 8 % (0-9) Eosinophils (%) (Auto) 1 % (0-3) Basophils (%) (Auto) 1 % (0-3) Neutrophils # (Auto) 2.8 x10^3/uL (1.8-7.7) Lymphocytes # (Auto) 2.8 x10^3/uL (1.0-4.8) Monocytes # (Auto) 0.5 x10^3/uL (0.0-1.1) Eosinophils # (Auto) 0.1 x10^3/uL (0.0-0.7) Basophils # (Auto) 0.1 x10^3/uL (0.0-0.2) Segmented Neutrophils % 48 % (35-66) Band Neutrophils % 3 % (0-9) Lymphocytes % 33 % (24-48) Atypical Lymphocytes % (Manual) 7 % (0-0) Monocytes % 7 % (0-10) Basophils % 2 % (0-3) Toxic Granulation Slight Platelet Estimate Adequate (ADEQUATE) Polychromasia Mod Anisocytosis Slight Lactic Acid Level 1.2 mmol/L (0.4-2.0) Thyroid Stimulating Hormone (TSH) 10.859 uIU/mL (0.358-3.74) Test 12/25/18 04:30 White Blood Count 5.7 x10^3/uL (4.0-11.0) Red Blood Count 3.54 x10^6/uL (3.50-5.40) Hemoglobin 11.0 g/dL (12.0-15.5) Hematocrit 31.4 % (36.0-47.0) Mean Corpuscular Volume 89 fL (79-100) Mean Corpuscular Hemoglobin 31 pg (25-35) Mean Corpuscular Hemoglobin Concent 35 g/dL (31-37) Red Cell Distribution Width 15.5 % (11.5-14.5) Platelet Count 157 x10^3/uL (140-400) Neutrophils (%) (Auto) 36 % (31-73) Lymphocytes (%) (Auto) 54 % (24-48) Monocytes (%) (Auto) 9 % (0-9) Eosinophils (%) (Auto) 1 % (0-3) Basophils (%) (Auto) 1 % (0-3) Neutrophils # (Auto) 2.0 x10^3/uL (1.8-7.7) Lymphocytes # (Auto) 3.0 x10^3/uL (1.0-4.8) Monocytes # (Auto) 0.5 x10^3/uL (0.0-1.1) Eosinophils # (Auto) 0.1 x10^3/uL (0.0-0.7) Basophils # (Auto) 0.0 x10^3/uL (0.0-0.2) Sodium Level 137 mmol/L (136-145) Potassium Level 3.7 mmol/L (3.5-5.1) Chloride Level 102 mmol/L (98-107) Carbon Dioxide Level 29 mmol/L (21-32) Anion Gap 6 (6-14) Blood Urea Nitrogen 5 mg/dL (7-20) Creatinine 0.9 mg/dL (0.6-1.0) Estimated GFR (Cockcroft-Gault) 68.7 BUN/Creatinine Ratio 6 (6-20) Glucose Level 113 mg/dL (70-99) Calcium Level 7.7 mg/dL (8.5-10.1) Total Bilirubin 0.8 mg/dL (0.2-1.0) Aspartate Amino Transf (AST/SGOT) 80 U/L (15-37) Alanine Aminotransferase (ALT/SGPT) 187 U/L (14-59) Alkaline Phosphatase 104 U/L (46-116) Total Protein 6.5 g/dL (6.4-8.2) Albumin 2.6 g/dL (3.4-5.0) Albumin/Globulin Ratio 0.7 (1.0-1.7) Laboratory Tests Test 12/25/18 04:30 White Blood Count 5.7 x10^3/uL (4.0-11.0) Red Blood Count 3.54 x10^6/uL (3.50-5.40) Hemoglobin 11.0 g/dL (12.0-15.5) Hematocrit 31.4 % (36.0-47.0) Mean Corpuscular Volume 89 fL (79-100) Mean Corpuscular Hemoglobin 31 pg (25-35) Mean Corpuscular Hemoglobin Concent 35 g/dL (31-37) Red Cell Distribution Width 15.5 % (11.5-14.5) Platelet Count 157 x10^3/uL (140-400) Neutrophils (%) (Auto) 36 % (31-73) Lymphocytes (%) (Auto) 54 % (24-48) Monocytes (%) (Auto) 9 % (0-9) Eosinophils (%) (Auto) 1 % (0-3) Basophils (%) (Auto) 1 % (0-3) Neutrophils # (Auto) 2.0 x10^3/uL (1.8-7.7) Lymphocytes # (Auto) 3.0 x10^3/uL (1.0-4.8) Monocytes # (Auto) 0.5 x10^3/uL (0.0-1.1) Eosinophils # (Auto) 0.1 x10^3/uL (0.0-0.7) Basophils # (Auto) 0.0 x10^3/uL (0.0-0.2) Sodium Level 137 mmol/L (136-145) Potassium Level 3.7 mmol/L (3.5-5.1) Chloride Level 102 mmol/L (98-107) Carbon Dioxide Level 29 mmol/L (21-32) Anion Gap 6 (6-14) Blood Urea Nitrogen 5 mg/dL (7-20) Creatinine 0.9 mg/dL (0.6-1.0) Estimated GFR (Cockcroft-Gault) 68.7 BUN/Creatinine Ratio 6 (6-20) Glucose Level 113 mg/dL (70-99) Calcium Level 7.7 mg/dL (8.5-10.1) Total Bilirubin 0.8 mg/dL (0.2-1.0) Aspartate Amino Transf (AST/SGOT) 80 U/L (15-37) Alanine Aminotransferase (ALT/SGPT) 187 U/L (14-59) Alkaline Phosphatase 104 U/L (46-116) Total Protein 6.5 g/dL (6.4-8.2) Albumin 2.6 g/dL (3.4-5.0) Albumin/Globulin Ratio 0.7 (1.0-1.7) Microbiology 12/24/18 Blood Culture - Preliminary, Resulted NO GROWTH AFTER 1 DAY Medications Current Medications Prochlorperazine Edisylate (Compazine) 10 mg PRN Q6HRS PRN IV NAUSEA/VOMITING, 2ND CHOICE Last administered on 12/22/18at 14:18; Start 12/22/18 at 13:15 Ondansetron HCl (Zofran Odt) 4 mg PRN Q6HRS PRN PO NAUSEA/VOMITING Last administered on 12/22/18at 20:43; Start 12/22/18 at 13:15 Albuterol/ Ipratropium (Duoneb) 3 ml RTQID NEB Last administered on 12/25/18at 08:17; Start 12/22/18 at 16:00 Acetaminophen (Tylenol) 650 mg PRN Q4HRS PRN PO TEMP OVER 100.4F OR MILD PAIN Last administered on 12/24/18at 06:10; Start 12/22/18 at 13:30 Enoxaparin Sodium (Lovenox 40mg Syringe) 40 mg Q24H SQ Last administered on 12/24/18at 15:55; Start 12/22/18 at 15:00 Levothyroxine Sodium (Synthroid) 150 mcg DAILY06 PO Last administered on 12/25/18at 05:21; Start 12/23/18 at 06:00 Polysaccharide Iron Complex (Niferex 150) 150 mg DAILY PO Last administered on 12/25/18at 08:46; Start 12/23/18 at 09:00 Ringer's Solution 1,000 ml @ 75 mls/hr 1X ONCE IV ; Start 12/22/18 at 15:45; Stop 12/22/18 at 17:20; Status DC Ringer's Solution 1,000 ml @ 75 mls/hr 1X ONCE IV ; Start 12/22/18 at 15:45; Stop 12/22/18 at 17:20; Status DC Propofol 20 ml @ As Directed STK-MED ONCE IV ; Start 12/22/18 at 16:40; Stop 12/22/18 at 16:40; Status DC Lidocaine HCl (Xylocaine-Mpf 1% 2ml Vial) 2 ml STK-MED ONCE .ROUTE ; Start 12/22/18 at 16:40; Stop 12/22/18 at 16:40; Status DC Pantoprazole Sodium (Protonix) 40 mg DAILYAC PO Last administered on 12/25/18 08:46; Start 12/22/18 at 17:30 Temazepam (Restoril) 15 mg HS PO Last administered on 12/24/18at 21:19; Start 12/22/18 at 21:00 Azithromycin (Zithromax) 500 mg 1X ONCE PO Last administered on 12/23/18at 13:25; Start 12/23/18 at 11:00; Stop 12/23/18 at 11:01; Status DC Oxycodone/ Acetaminophen (Percocet 5/325) 1 tab PRN Q4HRS PRN PO SEVERE PAIN Last administered on 12/25/18 05:21; Start 12/23/18 at 11:30 Dextrose/Sodium Chloride 1,000 ml @ 150 mls/hr Q6H40M IV Last administered on 12/25/18 05:21; Start 12/23/18 at 13:30 Dextrose/Sodium Chloride 1,000 ml @ 150 mls/hr Q6H40M IV ; Start 12/23/18 at 13:30; Stop 12/23/18 at 13:33; Status DC Ganciclovir Sodium 540 mg/ Dextrose 100 ml @ 100 mls/hr Q12HR IV Last administered on 12/25/18 08:46; Start 12/24/18 at 09:00 Chlorhexidine Gluconate (Peridex) 15 ml BID SWSP Last administered on 12/25/18 08:46; Start 12/24/18 at 09:00 Acetaminophen/ Hydrocodone Bitart (Lortab 5/325) 1 tab PRN Q4HRS PRN PO MODERATE Last administered on 12/25/18at 01:10; Start 12/24/18 at 09:00 Temazepam (Restoril) 7.5 mg PRN QHS PRN PO INSOMNIA; Start 12/24/18 at 09:00 Ondansetron HCl (Zofran) 4 mg PRN Q6HRS PRN IVP NAUSEA/VOMITING, 1ST CHOICE; Start 12/24/18 at 09:00 Calcium Carbonate/ Glycine (Tums) 500 mg PRN AFTMEALHC PRN PO INDIGESTION; Start 12/24/18 at 09:00 Guaifenesin (Robitussin Dm) 10 ml PRN Q6HRS PRN PO COUGH; Start 12/24/18 at 09:00 Albuterol Sulfate (Ventolin Neb Soln) 2.5 mg PRN Q4HRS PRN NEB SHORTNESS OF BREATH; Start 12/24/18 at 09:00 Cetirizine HCl (ZyrTEC) 10 mg PRN DAILY PRN PO ALLERGIES; Start 12/24/18 at 09:00 Throat Lozenges (Cepacol Sore Throat Lozenge) 1 curry PRN Q2HRS PRN PO SORE THROAT; Start 12/24/18 at 09:00 Multi-Ingredient Mouthwash/Gargle (Gi Cocktail) 20 ml PRN QID PRN PO CHEST PAIN; Start 12/24/18 at 11:00 Multi-Ingredient Mouthwash/Gargle (Gi Cocktail) 20 ml 1X ONCE SWSW Last administered on 12/24/18at 11:11; Start 12/24/18 at 11:00; Stop 12/24/18 at 11:01; Status DC Lidocaine (Lidoderm) 1 patch DAILY TD ; Start 12/24/18 at 11:00 Miscellaneous (Lidoderm Patch Removal) 1 ea QHS MC ; Start 12/24/18 at 21:00 Levothyroxine Sodium (Synthroid) 100 mcg DAILY06 PO ; Start 12/25/18 at 08:30; Status UNV Vitals/I & O Vital Sign - Last 24 Hours 12/24/18 12/24/18 12/24/18 12/24/18 11:00 11:26 11:30 12:26 Temp 100.2 100.2 Pulse 94 Resp 20 B/P (MAP) 121/61 (81) Pulse Ox 96 O2 Delivery Nasal Cannula Nasal Cannula Nasal Cannula Room Air O2 Flow Rate 2.0 2.0 2.0 12/24/18 12/24/18 12/24/18 12/24/18 15:00 15:46 15:55 16:55 Temp 101.7 101.7 Pulse 90 Resp 20 B/P (MAP) 141/87 (105) Pulse Ox 96 O2 Delivery Nasal Cannula Nasal Cannula Nasal Cannula Nasal Cannula O2 Flow Rate 2.0 2.0 2.0 12/24/18 12/24/18 12/24/18 12/24/18 19:00 20:00 20:27 21:20 Temp 98.5 98.5 Pulse 95 Resp 20 B/P (MAP) 144/84 (104) Pulse Ox 92 98 O2 Delivery Nasal Cannula Nasal Cannula Nasal Cannula Nasal Cannula O2 Flow Rate 2.0 2.0 2.0 12/24/18 12/24/18 12/25/18 12/25/18 22:34 23:02 01:10 01:20 Temp 102.1 102.1 Pulse 98 Resp 20 B/P (MAP) 103/60 (74) Pulse Ox 91 O2 Delivery Nasal Cannula Nasal Cannula Room Air Room Air O2 Flow Rate 2.0 12/25/18 12/25/18 12/25/18 12/25/18 02:15 02:15 03:05 05:21 Temp 100.3 100.3 Pulse 102 Resp 20 B/P (MAP) 92/49 (63) Pulse Ox 92 O2 Delivery Room Air Room Air Nasal Cannula Nasal Cannula O2 Flow Rate 2.0 12/25/18 12/25/18 12/25/18 06:21 07:00 08:18 Temp 99.1 99.1 Pulse 81 Resp 18 B/P (MAP) 110/64 (79) Pulse Ox 96 97 O2 Delivery Nasal Cannula Nasal Cannula Nasal Cannula O2 Flow Rate 1.0 1.0 Intake and Output 12/24/18 12/24/18 12/25/18 15:00 23:00 07:00 Intake Total 350 ml 200 ml Balance 350 ml 200 ml BRIAN HERNANDEZ MD Dec 25, 2018 09:19
[2018-12-25] MEDS: guaiFENesin DM 200MG/20MG 10 ML SYRUP PO SCH ×4 (09:30→21:10)
[2018-12-25 11:12] VITALS: BP 136/87
[2018-12-25 11:15] LABS: % ATYL 12 % (0-0); % BANDS 3 % (0-9); % BASOS 1 % (0-3); % EOS 1 % (0-5); % LYMPHS 45 % (24-48); % METAS 2 % (0-0); % MONOS 2 % (0-10); % SEGS 34 % (35-66); PLT ESTIMATE ADEQUATE (ADEQUATE)
[2018-12-25 11:19] LABS: ANISOCYTOSIS SLIGHT; SMUDGE CELLS PRESENT
--- NOTE | 2018-12-25 11:29 | PDOC ---
PULMONARY PROGRESS NOTES Subjective The patient is a 43-year-old that has been sick now for approximately a week. She was admitted at [facility]. She has been having a fever. She is being treated by ID for viral infection. Please refer to their notes. She has some chest pain, has temperature at home. She was found to have a fever of 102.4. D-dimer was elevated. Underwent CTA, which was negative for pulmonary embolism, . She has had intermittent cough that responds to albuterol. She does have a family history of asthma (mother0 and a history of coughing when around airway irritants such as tobacco smoke. Her coughing is improved with nebulized bronchodilators Vitals Vital Signs Date Time Temp Pulse Resp B/P (MAP) Pulse Ox O2 Delivery O2 Flow Rate FiO2 12/25/18 11:12 100.7 88 20 136/87 (103) 95 Nasal Cannula 1.0 100.7 General: Alert, Oriented X4, No acute distress Lungs: Clear Cardiovascular: S1, S2 Abdomen: Soft Neuro Exam: Alert, Oriented, Normal Speech, No Focal Findings Extremities: No Edema Labs Laboratory Tests Test 12/23/18 12:00 12/23/18 13:15 12/23/18 23:10 12/24/18 05:00 Erythrocyte Sedimentation Rate 58 (0-25) Procalcitonin 0.17 ng/mL (0.00-0.10) Cytomegalovirus IgG Antibody 1.10 U/mL (0.00-0.59) Cytomegalovirus IgM Antibody >240.0 AU/mL (0.0-29.9) Jeremiah-Mckinney Virus Capsid Ag IgG Ab >600.0 U/mL (0.0-17.9) Jeremiah-Mckinney Virus Capsid Ag IgM Ab >160.0 U/mL (0.0-35.9) Jeremiah-Mckinney Early Antigen IgG Ab 121.0 U/mL (0.0-8.9) Jeremiah-Mckinney Nuc Assoc Ag IgG Index >600.0 U/mL (0.0-17.9) Jeremiah-Mckinney Virus Interpretation Comment (.) Mycoplasma Serology (LAB) Negative (NEGATIVE) Miscellaneous Test Comment (.) White Blood Count 6.2 x10^3/uL (4.0-11.0) Red Blood Count 3.70 x10^6/uL (3.50-5.40) Hemoglobin 11.4 g/dL (12.0-15.5) Hematocrit 32.9 % (36.0-47.0) Mean Corpuscular Volume 89 fL (79-100) Mean Corpuscular Hemoglobin 31 pg (25-35) Mean Corpuscular Hemoglobin Concent 35 g/dL (31-37) Red Cell Distribution Width 15.4 % (11.5-14.5) Platelet Count 176 x10^3/uL (140-400) Neutrophils (%) (Auto) 45 % (31-73) Lymphocytes (%) (Auto) 45 % (24-48) Monocytes (%) (Auto) 8 % (0-9) Eosinophils (%) (Auto) 1 % (0-3) Basophils (%) (Auto) 1 % (0-3) Neutrophils # (Auto) 2.8 x10^3/uL (1.8-7.7) Lymphocytes # (Auto) 2.8 x10^3/uL (1.0-4.8) Monocytes # (Auto) 0.5 x10^3/uL (0.0-1.1) Eosinophils # (Auto) 0.1 x10^3/uL (0.0-0.7) Basophils # (Auto) 0.1 x10^3/uL (0.0-0.2) Segmented Neutrophils % 48 % (35-66) Band Neutrophils % 3 % (0-9) Lymphocytes % 33 % (24-48) Atypical Lymphocytes % (Manual) 7 % (0-0) Monocytes % 7 % (0-10) Basophils % 2 % (0-3) Toxic Granulation Slight Platelet Estimate Adequate (ADEQUATE) Polychromasia Mod Anisocytosis Slight Lactic Acid Level 1.2 mmol/L (0.4-2.0) Thyroid Stimulating Hormone (TSH) 10.859 uIU/mL (0.358-3.74) Test 12/25/18 04:30 White Blood Count 5.7 x10^3/uL (4.0-11.0) Red Blood Count 3.54 x10^6/uL (3.50-5.40) Hemoglobin 11.0 g/dL (12.0-15.5) Hematocrit 31.4 % (36.0-47.0) Mean Corpuscular Volume 89 fL (79-100) Mean Corpuscular Hemoglobin 31 pg (25-35) Mean Corpuscular Hemoglobin Concent 35 g/dL (31-37) Red Cell Distribution Width 15.5 % (11.5-14.5) Platelet Count 157 x10^3/uL (140-400) Neutrophils (%) (Auto) 36 % (31-73) Lymphocytes (%) (Auto) 54 % (24-48) Monocytes (%) (Auto) 9 % (0-9) Eosinophils (%) (Auto) 1 % (0-3) Basophils (%) (Auto) 1 % (0-3) Neutrophils # (Auto) 2.0 x10^3/uL (1.8-7.7) Lymphocytes # (Auto) 3.0 x10^3/uL (1.0-4.8) Monocytes # (Auto) 0.5 x10^3/uL (0.0-1.1) Eosinophils # (Auto) 0.1 x10^3/uL (0.0-0.7) Basophils # (Auto) 0.0 x10^3/uL (0.0-0.2) Segmented Neutrophils % 34 % (35-66) Band Neutrophils % 3 % (0-9) Lymphocytes % 45 % (24-48) Atypical Lymphocytes % (Manual) 12 % (0-0) Monocytes % 2 % (0-10) Eosinophils % 1 % (0-5) Basophils % 1 % (0-3) Metamyelocytes % 2 % (0-0) Smudge Cells Present Platelet Estimate Adequate (ADEQUATE) Large Platelets Occ Anisocytosis Slight Sodium Level 137 mmol/L (136-145) Potassium Level 3.7 mmol/L (3.5-5.1) Chloride Level 102 mmol/L (98-107) Carbon Dioxide Level 29 mmol/L (21-32) Anion Gap 6 (6-14) Blood Urea Nitrogen 5 mg/dL (7-20) Creatinine 0.9 mg/dL (0.6-1.0) Estimated GFR (Cockcroft-Gault) 68.7 BUN/Creatinine Ratio 6 (6-20) Glucose Level 113 mg/dL (70-99) Calcium Level 7.7 mg/dL (8.5-10.1) Total Bilirubin 0.8 mg/dL (0.2-1.0) Aspartate Amino Transf (AST/SGOT) 80 U/L (15-37) Alanine Aminotransferase (ALT/SGPT) 187 U/L (14-59) Alkaline Phosphatase 104 U/L (46-116) Total Protein 6.5 g/dL (6.4-8.2) Albumin 2.6 g/dL (3.4-5.0) Albumin/Globulin Ratio 0.7 (1.0-1.7) Procalcitonin 0.13 ng/mL (0.00-0.10) Laboratory Tests Test 12/25/18 04:30 White Blood Count 5.7 x10^3/uL (4.0-11.0) Red Blood Count 3.54 x10^6/uL (3.50-5.40) Hemoglobin 11.0 g/dL (12.0-15.5) Hematocrit 31.4 % (36.0-47.0) Mean Corpuscular Volume 89 fL (79-100) Mean Corpuscular Hemoglobin 31 pg (25-35) Mean Corpuscular Hemoglobin Concent 35 g/dL (31-37) Red Cell Distribution Width 15.5 % (11.5-14.5) Platelet Count 157 x10^3/uL (140-400) Neutrophils (%) (Auto) 36 % (31-73) Lymphocytes (%) (Auto) 54 % (24-48) Monocytes (%) (Auto) 9 % (0-9) Eosinophils (%) (Auto) 1 % (0-3) Basophils (%) (Auto) 1 % (0-3) Neutrophils # (Auto) 2.0 x10^3/uL (1.8-7.7) Lymphocytes # (Auto) 3.0 x10^3/uL (1.0-4.8) Monocytes # (Auto) 0.5 x10^3/uL (0.0-1.1) Eosinophils # (Auto) 0.1 x10^3/uL (0.0-0.7) Basophils # (Auto) 0.0 x10^3/uL (0.0-0.2) Segmented Neutrophils % 34 % (35-66) Band Neutrophils % 3 % (0-9) Lymphocytes % 45 % (24-48) Atypical Lymphocytes % (Manual) 12 % (0-0) Monocytes % 2 % (0-10) Eosinophils % 1 % (0-5) Basophils % 1 % (0-3) Metamyelocytes % 2 % (0-0) Smudge Cells Present Platelet Estimate Adequate (ADEQUATE) Large Platelets Occ Anisocytosis Slight Sodium Level 137 mmol/L (136-145) Potassium Level 3.7 mmol/L (3.5-5.1) Chloride Level 102 mmol/L (98-107) Carbon Dioxide Level 29 mmol/L (21-32) Anion Gap 6 (6-14) Blood Urea Nitrogen 5 mg/dL (7-20) Creatinine 0.9 mg/dL (0.6-1.0) Estimated GFR (Cockcroft-Gault) 68.7 BUN/Creatinine Ratio 6 (6-20) Glucose Level 113 mg/dL (70-99) Calcium Level 7.7 mg/dL (8.5-10.1) Total Bilirubin 0.8 mg/dL (0.2-1.0) Aspartate Amino Transf (AST/SGOT) 80 U/L (15-37) Alanine Aminotransferase (ALT/SGPT) 187 U/L (14-59) Alkaline Phosphatase 104 U/L (46-116) Total Protein 6.5 g/dL (6.4-8.2) Albumin 2.6 g/dL (3.4-5.0) Albumin/Globulin Ratio 0.7 (1.0-1.7) Procalcitonin 0.13 ng/mL (0.00-0.10) Impression . 1. Cough variant asthma 2. fever, possible viral infection. refer to ID note Plan . Agree with nebulized albuterol. I would be hesitant to use systemic steroids for this until the fever and infectious issues are resolved. Will follow. ROSALBA MAURO MD Dec 25, 2018 11:29
--- NOTE | 2018-12-25 12:39 | PDOC ---
G I PROGRESS NOTE Subjective Says trying to eat. Headache bothers worst. Physical Exam Lungs clear. RRR Abdomen soft, not tender nor distended. Review of Relevant I have reviewed the following items debora (where applicable) has been applied. Labs Laboratory Tests Test 12/23/18 13:15 12/23/18 23:10 12/24/18 05:00 12/25/18 04:30 Miscellaneous Test Comment (.) White Blood Count 6.2 x10^3/uL (4.0-11.0) 5.7 x10^3/uL (4.0-11.0) Red Blood Count 3.70 x10^6/uL (3.50-5.40) 3.54 x10^6/uL (3.50-5.40) Hemoglobin 11.4 g/dL (12.0-15.5) 11.0 g/dL (12.0-15.5) Hematocrit 32.9 % (36.0-47.0) 31.4 % (36.0-47.0) Mean Corpuscular Volume 89 fL (79-100) 89 fL (79-100) Mean Corpuscular Hemoglobin 31 pg (25-35) 31 pg (25-35) Mean Corpuscular Hemoglobin Concent 35 g/dL (31-37) 35 g/dL (31-37) Red Cell Distribution Width 15.4 % (11.5-14.5) 15.5 % (11.5-14.5) Platelet Count 176 x10^3/uL (140-400) 157 x10^3/uL (140-400) Neutrophils (%) (Auto) 45 % (31-73) 36 % (31-73) Lymphocytes (%) (Auto) 45 % (24-48) 54 % (24-48) Monocytes (%) (Auto) 8 % (0-9) 9 % (0-9) Eosinophils (%) (Auto) 1 % (0-3) 1 % (0-3) Basophils (%) (Auto) 1 % (0-3) 1 % (0-3) Neutrophils # (Auto) 2.8 x10^3/uL (1.8-7.7) 2.0 x10^3/uL (1.8-7.7) Lymphocytes # (Auto) 2.8 x10^3/uL (1.0-4.8) 3.0 x10^3/uL (1.0-4.8) Monocytes # (Auto) 0.5 x10^3/uL (0.0-1.1) 0.5 x10^3/uL (0.0-1.1) Eosinophils # (Auto) 0.1 x10^3/uL (0.0-0.7) 0.1 x10^3/uL (0.0-0.7) Basophils # (Auto) 0.1 x10^3/uL (0.0-0.2) 0.0 x10^3/uL (0.0-0.2) Segmented Neutrophils % 48 % (35-66) 34 % (35-66) Band Neutrophils % 3 % (0-9) 3 % (0-9) Lymphocytes % 33 % (24-48) 45 % (24-48) Atypical Lymphocytes % (Manual) 7 % (0-0) 12 % (0-0) Monocytes % 7 % (0-10) 2 % (0-10) Basophils % 2 % (0-3) 1 % (0-3) Toxic Granulation Slight Platelet Estimate Adequate (ADEQUATE) Adequate (ADEQUATE) Polychromasia Mod Anisocytosis Slight Slight Lactic Acid Level 1.2 mmol/L (0.4-2.0) Thyroid Stimulating Hormone (TSH) 10.859 uIU/mL (0.358-3.74) Eosinophils % 1 % (0-5) Metamyelocytes % 2 % (0-0) Smudge Cells Present Large Platelets Occ Sodium Level 137 mmol/L (136-145) Potassium Level 3.7 mmol/L (3.5-5.1) Chloride Level 102 mmol/L (98-107) Carbon Dioxide Level 29 mmol/L (21-32) Anion Gap 6 (6-14) Blood Urea Nitrogen 5 mg/dL (7-20) Creatinine 0.9 mg/dL (0.6-1.0) Estimated GFR (Cockcroft-Gault) 68.7 BUN/Creatinine Ratio 6 (6-20) Glucose Level 113 mg/dL (70-99) Calcium Level 7.7 mg/dL (8.5-10.1) Total Bilirubin 0.8 mg/dL (0.2-1.0) Aspartate Amino Transf (AST/SGOT) 80 U/L (15-37) Alanine Aminotransferase (ALT/SGPT) 187 U/L (14-59) Alkaline Phosphatase 104 U/L (46-116) Total Protein 6.5 g/dL (6.4-8.2) Albumin 2.6 g/dL (3.4-5.0) Albumin/Globulin Ratio 0.7 (1.0-1.7) Procalcitonin 0.13 ng/mL (0.00-0.10) Laboratory Tests Test 12/25/18 04:30 White Blood Count 5.7 x10^3/uL (4.0-11.0) Red Blood Count 3.54 x10^6/uL (3.50-5.40) Hemoglobin 11.0 g/dL (12.0-15.5) Hematocrit 31.4 % (36.0-47.0) Mean Corpuscular Volume 89 fL (79-100) Mean Corpuscular Hemoglobin 31 pg (25-35) Mean Corpuscular Hemoglobin Concent 35 g/dL (31-37) Red Cell Distribution Width 15.5 % (11.5-14.5) Platelet Count 157 x10^3/uL (140-400) Neutrophils (%) (Auto) 36 % (31-73) Lymphocytes (%) (Auto) 54 % (24-48) Monocytes (%) (Auto) 9 % (0-9) Eosinophils (%) (Auto) 1 % (0-3) Basophils (%) (Auto) 1 % (0-3) Neutrophils # (Auto) 2.0 x10^3/uL (1.8-7.7) Lymphocytes # (Auto) 3.0 x10^3/uL (1.0-4.8) Monocytes # (Auto) 0.5 x10^3/uL (0.0-1.1) Eosinophils # (Auto) 0.1 x10^3/uL (0.0-0.7) Basophils # (Auto) 0.0 x10^3/uL (0.0-0.2) Segmented Neutrophils % 34 % (35-66) Band Neutrophils % 3 % (0-9) Lymphocytes % 45 % (24-48) Atypical Lymphocytes % (Manual) 12 % (0-0) Monocytes % 2 % (0-10) Eosinophils % 1 % (0-5) Basophils % 1 % (0-3) Metamyelocytes % 2 % (0-0) Smudge Cells Present Platelet Estimate Adequate (ADEQUATE) Large Platelets Occ Anisocytosis Slight Sodium Level 137 mmol/L (136-145) Potassium Level 3.7 mmol/L (3.5-5.1) Chloride Level 102 mmol/L (98-107) Carbon Dioxide Level 29 mmol/L (21-32) Anion Gap 6 (6-14) Blood Urea Nitrogen 5 mg/dL (7-20) Creatinine 0.9 mg/dL (0.6-1.0) Estimated GFR (Cockcroft-Gault) 68.7 BUN/Creatinine Ratio 6 (6-20) Glucose Level 113 mg/dL (70-99) Calcium Level 7.7 mg/dL (8.5-10.1) Total Bilirubin 0.8 mg/dL (0.2-1.0) Aspartate Amino Transf (AST/SGOT) 80 U/L (15-37) Alanine Aminotransferase (ALT/SGPT) 187 U/L (14-59) Alkaline Phosphatase 104 U/L (46-116) Total Protein 6.5 g/dL (6.4-8.2) Albumin 2.6 g/dL (3.4-5.0) Albumin/Globulin Ratio 0.7 (1.0-1.7) Procalcitonin 0.13 ng/mL (0.00-0.10) Microbiology 12/24/18 Blood Culture - Preliminary, Resulted NO GROWTH AFTER 1 DAY Vitals/I & O Vital Sign - Last 24 Hours 12/24/18 12/24/18 12/24/18 12/24/18 15:00 15:46 15:55 16:55 Temp 101.7 101.7 Pulse 90 Resp 20 B/P (MAP) 141/87 (105) Pulse Ox 96 O2 Delivery Nasal Cannula Nasal Cannula Nasal Cannula Nasal Cannula O2 Flow Rate 2.0 2.0 2.0 12/24/18 12/24/18 12/24/18 12/24/18 19:00 20:00 20:27 21:20 Temp 98.5 98.5 Pulse 95 Resp 20 B/P (MAP) 144/84 (104) Pulse Ox 92 98 O2 Delivery Nasal Cannula Nasal Cannula Nasal Cannula Nasal Cannula O2 Flow Rate 2.0 2.0 2.0 12/24/18 12/24/18 12/25/18 12/25/18 22:34 23:02 01:10 01:20 Temp 102.1 102.1 Pulse 98 Resp 20 B/P (MAP) 103/60 (74) Pulse Ox 91 O2 Delivery Nasal Cannula Nasal Cannula Room Air Room Air O2 Flow Rate 2.0 12/25/18 12/25/18 12/25/18 12/25/18 02:15 02:15 03:05 05:21 Temp 100.3 100.3 Pulse 102 Resp 20 B/P (MAP) 92/49 (63) Pulse Ox 92 O2 Delivery Room Air Room Air Nasal Cannula Nasal Cannula O2 Flow Rate 2.0 12/25/18 12/25/18 12/25/18 12/25/18 06:21 07:00 08:18 11:12 Temp 99.1 100.7 99.1 100.7 Pulse 81 88 Resp 18 20 B/P (MAP) 110/64 (79) 136/87 (103) Pulse Ox 96 97 95 O2 Delivery Nasal Cannula Nasal Cannula Nasal Cannula Nasal Cannula O2 Flow Rate 1.0 1.0 1.0 12/25/18 12/25/18 11:56 12:02 O2 Delivery Nasal Cannula Nasal Cannula O2 Flow Rate 1.0 2.0 Intake and Output 12/24/18 12/24/18 12/25/18 15:00 23:00 07:00 Intake Total 350 ml 200 ml Balance 350 ml 200 ml Problem List Problems Medical Problems: (1) Anemia Status: Chronic (2) CAD (coronary artery disease) Status: Chronic (3) Chest pain Status: Acute (4) Chills with fever Status: Acute (5) Elevated transaminase level Status: Chronic (6) Hypothyroidism Status: Chronic (7) Sepsis Status: Acute (8) Splenomegaly Status: Acute (9) UTI (urinary tract infection) Status: Acute Assessment 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 H/o AMI. Still no results from EGD biopsies. Plan of Care: Continue current Tx, Mgmt Plan of Care Note Await pending data. OK with me to dismiss at your discretion and f/u as outpatient. CAMILA THOMAS MD Dec 25, 2018 12:39
[2018-12-25] MEDS: ENOXAPARIN 40 MG/0.4 ML SYRINGE. SQ SCH (14:23)
[2018-12-25 15:29] VITALS: BP 142/78
[2018-12-25 19:00] VITALS: BP 128/80
[2018-12-25] MEDS: TEMAZEPAM 15 MG CAPSULE PO SCH (21:10)
[2018-12-25 23:03] VITALS: BP 114/74
[2018-12-26] MEDS: oxyCODONE/APAP 5/325 1 TAB TABLET PO PRN ×2 (02:29→08:38)
[2018-12-26 03:16] VITALS: BP 114/69
[2018-12-26] MEDS: LEVOTHYROXINE 150 MCG TABLET PO SCH (05:58)
[2018-12-26] MEDS: HYDROcodone/APAP 5/325MG 1 TAB TABLET PO PRN (05:58)
[2018-12-26 07:00] VITALS: BP 126/78
[2018-12-26] MEDS: IPRATRPIUM/ALBUTEROL 0.5/2.5MG 3 ML NEBU. NEB SCH ×2 (07:17→11:08)
[2018-12-26] MEDS: PANTOPRAZOLE 40 MG TABLET.DR. PO SCH (08:24)
[2018-12-26] MEDS: CHLORHEXIDINE 0.12% 15 ML MOUTHWASH. SWSP SCH (08:24)
[2018-12-26] MEDS: IRON POLYSACCHARIDE COMPLEX 150 MG CAPSULE PO SCH (08:25)
[2018-12-26] MEDS: guaiFENesin DM 200MG/20MG 10 ML SYRUP PO SCH ×2 (08:25→13:00)
--- NOTE | 2018-12-26 08:41 | PDOC ---
PULMONARY PROGRESS NOTES Subjective The patient is a 43-year-old that has been sick now for approximately a week. She was admitted at [facility]. She has been having a fever. She is being treated by ID for viral infection. Please refer to their notes. She has some chest pain, has temperature at home. She was found to have a fever of 102.4. D-dimer was elevated. Underwent CTA, which was negative for pulmonary embolism, . She has had intermittent cough that responds to albuterol. She does have a family history of asthma (mother0 and a history of coughing when around airway irritants such as tobacco smoke. Her coughing is improved with nebulized bronchodilators Vitals Vital Signs Date Time Temp Pulse Resp B/P (MAP) Pulse Ox O2 Delivery O2 Flow Rate FiO2 12/26/18 08:38 Nasal Cannula 94.0 12/26/18 07:17 94 12/26/18 07:00 100.1 86 19 126/78 (94) 100.1 General: Alert, Oriented X4, No acute distress Lungs: Clear Cardiovascular: S1, S2 Abdomen: Soft Neuro Exam: Alert, Oriented, Normal Speech, No Focal Findings Extremities: No Edema Labs Laboratory Tests Test 12/25/18 04:30 White Blood Count 5.7 x10^3/uL (4.0-11.0) Red Blood Count 3.54 x10^6/uL (3.50-5.40) Hemoglobin 11.0 g/dL (12.0-15.5) Hematocrit 31.4 % (36.0-47.0) Mean Corpuscular Volume 89 fL (79-100) Mean Corpuscular Hemoglobin 31 pg (25-35) Mean Corpuscular Hemoglobin Concent 35 g/dL (31-37) Red Cell Distribution Width 15.5 % (11.5-14.5) Platelet Count 157 x10^3/uL (140-400) Neutrophils (%) (Auto) 36 % (31-73) Lymphocytes (%) (Auto) 54 % (24-48) Monocytes (%) (Auto) 9 % (0-9) Eosinophils (%) (Auto) 1 % (0-3) Basophils (%) (Auto) 1 % (0-3) Neutrophils # (Auto) 2.0 x10^3/uL (1.8-7.7) Lymphocytes # (Auto) 3.0 x10^3/uL (1.0-4.8) Monocytes # (Auto) 0.5 x10^3/uL (0.0-1.1) Eosinophils # (Auto) 0.1 x10^3/uL (0.0-0.7) Basophils # (Auto) 0.0 x10^3/uL (0.0-0.2) Segmented Neutrophils % 34 % (35-66) Band Neutrophils % 3 % (0-9) Lymphocytes % 45 % (24-48) Atypical Lymphocytes % (Manual) 12 % (0-0) Monocytes % 2 % (0-10) Eosinophils % 1 % (0-5) Basophils % 1 % (0-3) Metamyelocytes % 2 % (0-0) Smudge Cells Present Platelet Estimate Adequate (ADEQUATE) Large Platelets Occ Anisocytosis Slight Sodium Level 137 mmol/L (136-145) Potassium Level 3.7 mmol/L (3.5-5.1) Chloride Level 102 mmol/L (98-107) Carbon Dioxide Level 29 mmol/L (21-32) Anion Gap 6 (6-14) Blood Urea Nitrogen 5 mg/dL (7-20) Creatinine 0.9 mg/dL (0.6-1.0) Estimated GFR (Cockcroft-Gault) 68.7 BUN/Creatinine Ratio 6 (6-20) Glucose Level 113 mg/dL (70-99) Calcium Level 7.7 mg/dL (8.5-10.1) Total Bilirubin 0.8 mg/dL (0.2-1.0) Aspartate Amino Transf (AST/SGOT) 80 U/L (15-37) Alanine Aminotransferase (ALT/SGPT) 187 U/L (14-59) Alkaline Phosphatase 104 U/L (46-116) Total Protein 6.5 g/dL (6.4-8.2) Albumin 2.6 g/dL (3.4-5.0) Albumin/Globulin Ratio 0.7 (1.0-1.7) Procalcitonin 0.13 ng/mL (0.00-0.10) Impression . 1. Cough variant asthma 2. fever, possible viral infection. refer to ID note Plan . Agree with nebulized albuterol. I would be hesitant to use systemic steroids for this until the fever and infectious issues are resolved. Will follow. BUTCH DOBBS MD Dec 26, 2018 08:41
[2018-12-26] MEDS ORDERED: HYDR-2761 PO (09:10)
[2018-12-26] MEDS ORDERED: CETI10TA16 PO (09:10)
[2018-12-26] MEDS ORDERED: GUAI5SYR PO (09:10)
[2018-12-26] MEDS ORDERED: PANT40TA77 PO (09:10)
[2018-12-26] MEDS ORDERED: ALBU2.5V8 NEB (09:10)
[2018-12-26] MEDS ORDERED: IRON150C11 PO (09:10)
[2018-12-26] MEDS ORDERED: LEVO150T PO (09:10)
--- NOTE | 2018-12-26 09:14 | PDOC ---
PROGRESS NOTES Chief Complaint Chief Complaint Acute viral infection, CMV - gancyclovir per ID Chest pain - ruled out DE myalgia, consider MONO Fevers/chills - flu negative pending EBV and CMV Hypothyroidism - on synthroid and claims compliance Obesity Anemia - on chronic iron therapy Elevated transaminases - concerning for mono. GI consulted Splenomegaly - could be source of pain UTI - on empiric antibiotics SIRS Abdominal discomfort with nausea obese, BMI 44 History of Present Illness History of Present Illness no more fevers FEels and looks better after a shower She claims she tried to ambulate yesterday She is pos for CMV and EBC on ganciclovir per ID headache PLAN: I left some supportive rx on chart if she discharges today on PO antiviral Vitals Vitals Vital Signs Date Time Temp Pulse Resp B/P (MAP) Pulse Ox O2 Delivery O2 Flow Rate FiO2 12/26/18 08:38 Nasal Cannula 94.0 12/26/18 07:17 94 12/26/18 07:00 100.1 86 19 126/78 (94) 100.1 Physical Exam Physical Exam CONSTITUTIONAL: She is in bed She is cooperative, no acute distress. HEENT: Pupils equal and reactive. EOMI - no gross photophobia. Normal conjunctivae. Oral cavity, pharynx was clear. NECK: Supple. Good range of motion. No nucchal rigidity LUNGS: Clear to auscultation. HEART: S1, S2. ABDOMEN: Obese, soft, no guarding. NT EXTREMITIES: No clubbing or cyanosis, with trace edema. SKIN: Warm to touch. Joints are not inflamed. NEUROLOGIC: She is nonfocal and appropriate. PSYCHIATRIC: Affect is appropriate General: Oriented X3, Cooperative, mild distress Heart: Normal S1 Lungs: Clear Extremities: No cyanosis Review of Systems Review of Systems headache, all else neg Assessment and Plan Assessmemt and Plan Problems Medical Problems: (1) Anemia Status: Chronic (2) CAD (coronary artery disease) Status: Chronic (3) Chest pain Status: Acute (4) Chills with fever Status: Acute (5) Elevated transaminase level Status: Chronic (6) Hypothyroidism Status: Chronic (7) Sepsis Status: Acute (8) Splenomegaly Status: Acute (9) UTI (urinary tract infection) Status: Acute Comment Review of Relevant I have reviewed the following items debora (where applicable) has been applied. Labs Laboratory Tests Test 12/25/18 04:30 White Blood Count 5.7 x10^3/uL (4.0-11.0) Red Blood Count 3.54 x10^6/uL (3.50-5.40) Hemoglobin 11.0 g/dL (12.0-15.5) Hematocrit 31.4 % (36.0-47.0) Mean Corpuscular Volume 89 fL (79-100) Mean Corpuscular Hemoglobin 31 pg (25-35) Mean Corpuscular Hemoglobin Concent 35 g/dL (31-37) Red Cell Distribution Width 15.5 % (11.5-14.5) Platelet Count 157 x10^3/uL (140-400) Neutrophils (%) (Auto) 36 % (31-73) Lymphocytes (%) (Auto) 54 % (24-48) Monocytes (%) (Auto) 9 % (0-9) Eosinophils (%) (Auto) 1 % (0-3) Basophils (%) (Auto) 1 % (0-3) Neutrophils # (Auto) 2.0 x10^3/uL (1.8-7.7) Lymphocytes # (Auto) 3.0 x10^3/uL (1.0-4.8) Monocytes # (Auto) 0.5 x10^3/uL (0.0-1.1) Eosinophils # (Auto) 0.1 x10^3/uL (0.0-0.7) Basophils # (Auto) 0.0 x10^3/uL (0.0-0.2) Segmented Neutrophils % 34 % (35-66) Band Neutrophils % 3 % (0-9) Lymphocytes % 45 % (24-48) Atypical Lymphocytes % (Manual) 12 % (0-0) Monocytes % 2 % (0-10) Eosinophils % 1 % (0-5) Basophils % 1 % (0-3) Metamyelocytes % 2 % (0-0) Smudge Cells Present Platelet Estimate Adequate (ADEQUATE) Large Platelets Occ Anisocytosis Slight Sodium Level 137 mmol/L (136-145) Potassium Level 3.7 mmol/L (3.5-5.1) Chloride Level 102 mmol/L (98-107) Carbon Dioxide Level 29 mmol/L (21-32) Anion Gap 6 (6-14) Blood Urea Nitrogen 5 mg/dL (7-20) Creatinine 0.9 mg/dL (0.6-1.0) Estimated GFR (Cockcroft-Gault) 68.7 BUN/Creatinine Ratio 6 (6-20) Glucose Level 113 mg/dL (70-99) Calcium Level 7.7 mg/dL (8.5-10.1) Total Bilirubin 0.8 mg/dL (0.2-1.0) Aspartate Amino Transf (AST/SGOT) 80 U/L (15-37) Alanine Aminotransferase (ALT/SGPT) 187 U/L (14-59) Alkaline Phosphatase 104 U/L (46-116) Total Protein 6.5 g/dL (6.4-8.2) Albumin 2.6 g/dL (3.4-5.0) Albumin/Globulin Ratio 0.7 (1.0-1.7) Procalcitonin 0.13 ng/mL (0.00-0.10) Microbiology 12/24/18 Blood Culture - Preliminary, Resulted NO GROWTH AFTER 2 DAYS Medications Current Medications Prochlorperazine Edisylate (Compazine) 10 mg PRN Q6HRS PRN IV NAUSEA/VOMITING, 2ND CHOICE Last administered on 12/22/18 14:18; Start 12/22/18 at 13:15 Ondansetron HCl (Zofran Odt) 4 mg PRN Q6HRS PRN PO NAUSEA/VOMITING Last administered on 12/22/18at 20:43; Start 12/22/18 at 13:15 Albuterol/ Ipratropium (Duoneb) 3 ml RTQID NEB Last administered on 12/26/18at 07:17; Start 12/22/18 at 16:00 Acetaminophen (Tylenol) 650 mg PRN Q4HRS PRN PO TEMP OVER 100.4F OR MILD PAIN Last administered on 12/24/18 06:10; Start 12/22/18 at 13:30 Enoxaparin Sodium (Lovenox 40mg Syringe) 40 mg Q24H SQ Last administered on 12/25/18 14:23; Start 12/22/18 at 15:00 Levothyroxine Sodium (Synthroid) 150 mcg DAILY06 PO Last administered on 12/26/18 05:58; Start 12/23/18 at 06:00 Polysaccharide Iron Complex (Niferex 150) 150 mg DAILY PO Last administered on 12/26/18at 08:25; Start 12/23/18 at 09:00 Ringer's Solution 1,000 ml @ 75 mls/hr 1X ONCE IV ; Start 12/22/18 at 15:45; Stop 12/22/18 at 17:20; Status DC Ringer's Solution 1,000 ml @ 75 mls/hr 1X ONCE IV ; Start 12/22/18 at 15:45; Stop 12/22/18 at 17:20; Status DC Propofol 20 ml @ As Directed STK-MED ONCE IV ; Start 12/22/18 at 16:40; Stop 12/22/18 at 16:40; Status DC Lidocaine HCl (Xylocaine-Mpf 1% 2ml Vial) 2 ml STK-MED ONCE .ROUTE ; Start 12/22/18 at 16:40; Stop 12/22/18 at 16:40; Status DC Pantoprazole Sodium (Protonix) 40 mg DAILYAC PO Last administered on 12/26/18at 08:24; Start 12/22/18 at 17:30 Temazepam (Restoril) 15 mg HS PO Last administered on 12/25/18at 21:10; Start 12/22/18 at 21:00 Azithromycin (Zithromax) 500 mg 1X ONCE PO Last administered on 12/23/18at 13:25; Start 12/23/18 at 11:00; Stop 12/23/18 at 11:01; Status DC Oxycodone/ Acetaminophen (Percocet 5/325) 1 tab PRN Q4HRS PRN PO SEVERE PAIN Last administered on 12/26/18at 08:38; Start 12/23/18 at 11:30 Dextrose/Sodium Chloride 1,000 ml @ 150 mls/hr Q6H40M IV Last administered on 12/25/18at 05:21; Start 12/23/18 at 13:30; Stop 12/25/18 at 09:16; Status DC Dextrose/Sodium Chloride 1,000 ml @ 150 mls/hr Q6H40M IV ; Start 12/23/18 at 13:30; Stop 12/23/18 at 13:33; Status DC Ganciclovir Sodium 540 mg/ Dextrose 100 ml @ 100 mls/hr Q12HR IV Last administered on 12/25/18at 21:11; Start 12/24/18 at 09:00 Chlorhexidine Gluconate (Peridex) 15 ml BID SWSP Last administered on 12/26/18at 08:24; Start 12/24/18 at 09:00 Acetaminophen/ Hydrocodone Bitart (Lortab 5/325) 1 tab PRN Q4HRS PRN PO MODERATE PAIN Last administered on 12/26/18at 05:58; Start 12/24/18 at 09:00 Temazepam (Restoril) 7.5 mg PRN QHS PRN PO INSOMNIA; Start 12/24/18 at 09:00 Ondansetron HCl (Zofran) 4 mg PRN Q6HRS PRN IVP NAUSEA/VOMITING, 1ST CHOICE; Start 12/24/18 at 09:00 Calcium Carbonate/ Glycine (Tums) 500 mg PRN AFTMEALHC PRN PO INDIGESTION; Start 12/24/18 at 09:00 Guaifenesin (Robitussin Dm) 10 ml PRN Q6HRS PRN PO COUGH; Start 12/24/18 at 09:00; Stop 12/25/18 at 09:16; Status DC Albuterol Sulfate (Ventolin Neb Soln) 2.5 mg PRN Q4HRS PRN NEB SHORTNESS OF BREATH; Start 12/24/18 at 09:00 Cetirizine HCl (ZyrTEC) 10 mg PRN DAILY PRN PO ALLERGIES; Start 12/24/18 at 09:00 Throat Lozenges (Cepacol Sore Throat Lozenge) 1 curry PRN Q2HRS PRN PO SORE THROAT; Start 12/24/18 at 09:00 Multi-Ingredient Mouthwash/Gargle (Gi Cocktail) 20 ml PRN QID PRN PO CHEST PAIN; Start 12/24/18 at 11:00 Multi-Ingredient Mouthwash/Gargle (Gi Cocktail) 20 ml 1X ONCE SWSW Last administered on 12/24/18at 11:11; Start 12/24/18 at 11:00; Stop 12/24/18 at 11:01; Status DC Lidocaine (Lidoderm) 1 patch DAILY TD ; Start 12/24/18 at 11:00; Stop 12/25/18 at 09:16; Status DC Miscellaneous (Lidoderm Patch Removal) 1 ea QHS MC ; Start 12/24/18 at 21:00; Stop 12/25/18 at 14:21; Status DC Levothyroxine Sodium (Synthroid) 100 mcg DAILY06 PO ; Start 12/25/18 at 08:30; Status UNV Guaifenesin (Robitussin Dm) 10 ml QID PO Last administered on 12/26/18at 08:25; Start 12/25/18 at 09:30 Ibuprofen (Motrin) 400 mg PRN Q6HRS PRN PO INFLAMMATION; Start 12/25/18 at 09:15 Active Scripts Active Synthroid (Levothyroxine Sodium) 150 Mcg Tablet 150 Mcg PO DAILY06 Pantoprazole Sodium (Pantoprazole Sodium) 40 Mg Tablet.dr 40 Mg PO DAILYAC Guaifenesin Dm Syrup (Guaifenesin/Dextromethorphan) 5 Ml Syrup 10 Ml PO QID 14 Days Poly-Iron (Iron Polysaccharides Complex) 150 Mg Capsule 150 Mg PO DAILY Hydrocodone-Apap 5-325 (Hydrocodone Bit/Acetaminophen) 1 Tab Tablet 1 Tab PO PRN Q4HRS PRN Proair Hfa (Albuterol Sulfate) 8.5 Gm Hfa.aer.ad 2.5 Mg NEB PRN Q4HRS PRN 30 Days Cetirizine Hcl 10 Mg Tablet 10 Mg PO PRN DAILY PRN Vitals/I & O Vital Sign - Last 24 Hours 12/25/18 12/25/18 12/25/18 12/25/18 11:12 11:56 12:02 13:02 Temp 100.7 100.7 Pulse 88 Resp 20 B/P (MAP) 136/87 (103) Pulse Ox 95 O2 Delivery Nasal Cannula Nasal Cannula Nasal Cannula Nasal Cannula O2 Flow Rate 1.0 1.0 2.0 2.0 12/25/18 12/25/18 12/25/18 12/25/18 15:29 16:14 16:42 17:42 Temp 99.3 99.3 Pulse 93 Resp 18 B/P (MAP) 142/78 (99) Pulse Ox 95 100 O2 Delivery Nasal Cannula Nasal Cannula Nasal Cannula Room Air O2 Flow Rate 1.0 2.0 2.0 12/25/18 12/25/18 12/25/18 12/25/18 19:00 19:42 19:52 20:20 Temp 98.8 98.8 Pulse 98 Resp 20 B/P (MAP) 128/80 (96) Pulse Ox 91 92 O2 Delivery Room Air Room Air Room Air Room Air 12/25/18 12/25/18 12/25/18 12/25/18 20:52 22:24 23:03 23:52 Temp 98.3 98.3 Pulse 99 Resp 20 B/P (MAP) 114/74 (87) Pulse Ox 94 O2 Delivery Room Air Room Air Room Air Room Air 12/26/18 12/26/18 12/26/18 12/26/18 02:29 03:16 03:47 05:58 Temp 99.2 99.2 Pulse 93 Resp 20 B/P (MAP) 114/69 (84) Pulse Ox 89 O2 Delivery Room Air Room Air Room Air Room Air 12/26/18 12/26/18 12/26/18 12/26/18 07:00 07:17 07:22 08:38 Temp 100.1 100.1 Pulse 86 Resp 19 B/P (MAP) 126/78 (94) Pulse Ox 92 94 O2 Delivery Room Air Room Air Room Air Nasal Cannula O2 Flow Rate 94.0 Intake and Output 12/25/18 12/25/18 12/26/18 15:00 23:00 07:00 Intake Total 950 ml Balance 950 ml BRIAN HERNANDEZ MD Dec 26, 2018 09:14
[2018-12-26] MEDS ORDERED: ASA/APAP/CAFFEINE 250/250/65MG TABLET. PO PRN (09:15)
--- NOTE | 2018-12-26 09:17 | PDOC3 ---
Discharge Summary Visit Information Date of Admission: Dec 22, 2018 Date of Discharge: Dec 26, 2018 Admitting Diagnosis Comment: Acute viral infection, CMV - gancyclovir per ID Chest pain - ruled out HI myalgia, consider MONO Fevers/chills - flu negative pending EBV and CMV Hypothyroidism - on synthroid and claims compliance Obesity Anemia - on chronic iron therapy Elevated transaminases - concerning for mono. GI consulted Splenomegaly - could be source of pain UTI - on empiric antibiotics SIRS Abdominal discomfort with nausea obese, BMI 44 Final Diagnosis Problems Medical Problems: (1) Anemia Status: Chronic (2) CAD (coronary artery disease) Status: Chronic (3) Chest pain Status: Acute (4) Chills with fever Status: Acute (5) Elevated transaminase level Status: Chronic (6) Hypothyroidism Status: Chronic (7) Sepsis Status: Acute (8) Splenomegaly Status: Acute (9) UTI (urinary tract infection) Status: Acute Brief Hospital Course Allergies Allergies Coded Allergies Type Severity Reaction Last Updated Verified Penicillins Allergy Intermediate rash 12/22/18 Yes clindamycin Allergy Intermediate rash 12/22/18 Yes Vital Signs Vital Signs Date Time Temp Pulse Resp B/P (MAP) Pulse Ox O2 Delivery O2 Flow Rate FiO2 12/26/18 08:38 Nasal Cannula 94.0 12/26/18 07:17 94 12/26/18 07:00 100.1 86 19 126/78 (94) 100.1 Lab Results Laboratory Tests Test 12/25/18 04:30 White Blood Count 5.7 x10^3/uL (4.0-11.0) Red Blood Count 3.54 x10^6/uL (3.50-5.40) Hemoglobin 11.0 g/dL (12.0-15.5) Hematocrit 31.4 % (36.0-47.0) Mean Corpuscular Volume 89 fL (79-100) Mean Corpuscular Hemoglobin 31 pg (25-35) Mean Corpuscular Hemoglobin Concent 35 g/dL (31-37) Red Cell Distribution Width 15.5 % (11.5-14.5) Platelet Count 157 x10^3/uL (140-400) Neutrophils (%) (Auto) 36 % (31-73) Lymphocytes (%) (Auto) 54 % (24-48) Monocytes (%) (Auto) 9 % (0-9) Eosinophils (%) (Auto) 1 % (0-3) Basophils (%) (Auto) 1 % (0-3) Neutrophils # (Auto) 2.0 x10^3/uL (1.8-7.7) Lymphocytes # (Auto) 3.0 x10^3/uL (1.0-4.8) Monocytes # (Auto) 0.5 x10^3/uL (0.0-1.1) Eosinophils # (Auto) 0.1 x10^3/uL (0.0-0.7) Basophils # (Auto) 0.0 x10^3/uL (0.0-0.2) Segmented Neutrophils % 34 % (35-66) Band Neutrophils % 3 % (0-9) Lymphocytes % 45 % (24-48) Atypical Lymphocytes % (Manual) 12 % (0-0) Monocytes % 2 % (0-10) Eosinophils % 1 % (0-5) Basophils % 1 % (0-3) Metamyelocytes % 2 % (0-0) Smudge Cells Present Platelet Estimate Adequate (ADEQUATE) Large Platelets Occ Anisocytosis Slight Sodium Level 137 mmol/L (136-145) Potassium Level 3.7 mmol/L (3.5-5.1) Chloride Level 102 mmol/L (98-107) Carbon Dioxide Level 29 mmol/L (21-32) Anion Gap 6 (6-14) Blood Urea Nitrogen 5 mg/dL (7-20) Creatinine 0.9 mg/dL (0.6-1.0) Estimated GFR (Cockcroft-Gault) 68.7 BUN/Creatinine Ratio 6 (6-20) Glucose Level 113 mg/dL (70-99) Calcium Level 7.7 mg/dL (8.5-10.1) Total Bilirubin 0.8 mg/dL (0.2-1.0) Aspartate Amino Transf (AST/SGOT) 80 U/L (15-37) Alanine Aminotransferase (ALT/SGPT) 187 U/L (14-59) Alkaline Phosphatase 104 U/L (46-116) Total Protein 6.5 g/dL (6.4-8.2) Albumin 2.6 g/dL (3.4-5.0) Albumin/Globulin Ratio 0.7 (1.0-1.7) Procalcitonin 0.13 ng/mL (0.00-0.10) Brief Hospital Course Ms. Crowell is a 43 old white female who came in with a gamut of sxs consistent with acute viral syndrome, She tested positive for CMV and EBC and was treated with IV ganciclovir by ID< SHE WAS febrile for maybe 2 days and now better, Still some headaches,. I have given her many supportive meds rx for her and ID will shift to PO antiviral today NO PT needs SHe requests work excuse slip consults: ID Proc; none 2 notes today,. 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) Disposition/Orders: D/C to Home Scheduled Guaifenesin/Dextromethorphan (Guaifenesin Dm Syrup) 5 Ml Syrup, 10 ML PO QID for cough for 14 Days Prescribed by: BRIAN HERNANDEZ on 12/26/18909 Iron Polysaccharides Complex (Poly-Iron) 150 Mg Capsule, 150 MG PO DAILY for AMI, #30 Prescribed by: BRIAN HERNANDEZ on 12/26/18909 Levothyroxine Sodium (Synthroid) 150 Mcg Tablet, 150 MCG PO DAILY06 for hypothy tSH 10, #60 Prescribed by: BRIAN HERNANDEZ on 12/26/18909 Pantoprazole Sodium (Pantoprazole Sodium ) 40 Mg Tablet.dr, 40 MG PO DAILYAC for gerd, #30 Prescribed by: BRIAN EHRNANDEZ on 12/26/18909 Scheduled PRN Albuterol Sulfate (Proair Hfa) 8.5 Gm Hfa.aer.ad, 2.5 MG NEB PRN Q4HRS PRN for SHORTNESS OF BREATH for 30 Days Prescribed by: BRIAN HERNANDEZ on 12/26/18909 Cetirizine Hcl (Cetirizine Hcl) 10 Mg Tablet, 10 MG PO PRN DAILY PRN for ALLERGIES, #30 Prescribed by: BRIAN HERNANDEZ on 12/26/18909 Hydrocodone Bit/Acetaminophen (Hydrocodone-Apap 5-325 ) 1 Tab Tablet, 1 TAB PO PRN Q4HRS PRN for MODERATE PAIN, #30 Prescribed by: BRIAN HERNANDEZ on 12/26/18909 BRIAN HERNANDEZ MD Dec 26, 2018 09:17
--- NOTE | 2018-12-26 09:22 | PDOC ---
Infectious Disease Note Subjective Subjective pt is feeling better, low grade fever, ready to go home ROS ROS no n/v/d/sob Vital Sign Vital Signs Vital Signs Date Time Temp Pulse Resp B/P (MAP) Pulse Ox O2 Delivery O2 Flow Rate FiO2 12/26/18 08:38 Nasal Cannula 94.0 12/26/18 07:17 94 12/26/18 07:00 100.1 86 19 126/78 (94) 100.1 Physical Exam PHYSICAL EXAM CONSTITUTIONAL: She is in bed She is cooperative, no acute distress. HEENT: Pupils equal and reactive. EOMI - no gross photophobia. Normal conjunctivae. Oral cavity, pharynx was clear. NECK: Supple. Good range of motion. No nucchal rigidity LUNGS: Clear to auscultation. HEART: S1, S2. ABDOMEN: Obese, soft, no guarding. NT EXTREMITIES: No clubbing or cyanosis, with trace edema. SKIN: Warm to touch. Joints are not inflamed. NEUROLOGIC: She is nonfocal and appropriate. 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 Viral from above resp viral panel - neg Transaminitis - ? viral better today MITTAL - ? fever vs viral Hepatosplenomegaly refused TV U/S Abx allergies - PCN - tolerates amox. Clinda - rash Hypothyroidism Esophageal plaques Rib pain ? sec from cough - XRAY - neg Plan Plan of Care d/c ok on po valgancyclovir pcr pending f/u with us in 2 wks MEHRAN BROWN MD Dec 26, 2018 09:22
[2018-12-26] MEDS: DEXTROSE 5% IV SCH (10:26)
[2018-12-26] MEDS: GANCICLOVIR SODIUM IV SCH (10:26)
[2018-12-26 10:54] VITALS: BP 124/74
--- NOTE | 2018-12-26 13:42 | NUR ---
SW following. Discussed with RN, pt on an antiviral medication. PT recommending home independent. No SW needs at this time. Discharge order in chart. SW will continue to follow.
[2018-12-26] MEDS: ENOXAPARIN 40 MG/0.4 ML SYRINGE. SQ SCH (14:22)
--- NOTE | 2018-12-26 15:15 | NUR ---
Discharge Note: PT DISCHARGED HOME WITH SELF CARE. PT LEFT FACILITY VIA CAB PASS AT 1510. PT STABLE AND ALERT UPON DISCHARGE. PT PIV REMOVED FROM R AC WITHOUT COMPLICATIONS, BANDAGE APPLIED. PT EDUCATED ABOUT DISCHARGE MEDICATIONS, DISCHARGE INSTRUCTIONS, AND FOLLOW-UP INSTRUCTIONS, PT VOICED NO CONCERNS AT THIS TIME. PT LEFT WITH ALL PERSONAL BELONGINGS. RADHA HAMILTON [facility] Discharge instructions and discharge home medications reviewed with Patient and a copy given. All questions have been answered and understanding verbalized.
--- NOTE | 2018-12-26 23:05 | PATHOLOGY ---
[facility] Accession Number: [id number] . 01 Material submitted: . PART A: duodenum - DUODENUM BX PART B: stomach - ANTRUM BX PART C: esophagus - MID ESOPHAGUS BX. Modifiers: mid . 01 Clinical history: . Abdominal pain, fever . 02 Diagnosis: A. "Duodenum BX", biopsy: - Small bowel mucosa with mild reactive changes; no evidence of celiac sprue. . B. "Antrum BX", biopsy: - Gastric antral-type mucosa with mild reactive changes and mild chronic inflammation. - Negative H. pylori immunohistochemical stain (block B1); control reacted appropriately. . C. "Mid esophagus BX", biopsy: - Esophageal squamous mucosa with reactive changes, mild superficial acute esophagitis and aggregate of superficial micro-organisms; no increased eosinophils, glandular epithelium or dysplasia seen (see comment). . (CLW:mmmoises; 12/26/2018) [facility] 12/26/2018 1101 Local . 02 Comment: The aggregate of micro-organisms appear to be bacteria and fungal organisms. A confirmatory silver stain is pending and will be reported as an addendum. . (CLW:mmmoises; 12/26/2018) . 02 Electronically signed: . Meghan Holcomb MD, Pathologist NPI- [id number] . 01 Gross description: . A. Received in formalin labeled "Cofresi, Deborah, duodenum BX," are 2 segments of jacobsen soft tissue measuring 0.9 x 0.3 x 0.2 cm in aggregate dimensions and ranging from 0.4 to 0.5 cm in maximum dimension. The specimen is submitted entirely in cassette A1. . B. Received in formalin labeled "Cofresi, Deborah, antrum BX," are 2 segments of jacobsen soft tissue measuring 0.9 x 0.3 x 0.3 cm in aggregate dimensions and ranging from 0.4 to 0.5 cm in maximum dimension. The specimen is submitted entirely in cassette B1. . C. Received in formalin labeled "Cofresi, Deborah, mid esophagus BX," are 2 segments of jacobsen soft tissue measuring 0.9 x 0.3 x 0.2 cm in aggregate dimensions and ranging from 0.4 to 0.5 cm in maximum dimension. The specimen is submitted entirely in cassette C1. (TSD; 12/23/2018) TOB/TOB 12/23/2018 2138 Local . 02 Pathologist provided ICD-10: K29.50, K20.9 . 02 CPT . 173690, 210545, 835901, [id number] Specimen Comment: A courtesy copy of this report has been sent to [phone], [phone] Specimen Comment: [id number] Specimen Comment: Report sent to / DR CHUNG Performed at: 01 [facility] [address], [place] [id number] MD Eligio Cardenas MD Phone: [phone] Performed at: 02 [facility] [address] [place], [place] [id number] MD Jim Gore MD Phone: [phone]
[2018-12-28 16:09] LABS: LOG10 EBV DNA QN PCR 2.643 (.)
== END 2018-12-26 15:17 | disposition home or self-care (01) | DRG 872 ==
LOC: 5 SOUTH 12:18
PROVIDERS: ADMIT Internal Medicine; ATTEND Internal Medicine
PROC: 0DB68ZX Excision of Stomach, Via Natural or Artificial Opening Endoscopic, Diagnostic (ICD-10-PCS; 2018-12-22)
PROC: 0DB58ZX Excision of Esophagus, Via Natural or Artificial Opening Endoscopic, Diagnostic (ICD-10-PCS; 2018-12-22)
PROC: 0DB98ZX Excision of Duodenum, Via Natural or Artificial Opening Endoscopic, Diagnostic (ICD-10-PCS; principal; 2018-12-22 16:00)
DX: A41.9 Sepsis, unspecified organism (principal); B25.9 Cytomegaloviral disease, unspecified; N39.0 Urinary tract infection, site not specified; Z68.41 Body mass index [BMI] 40.0-44.9, adult; D50.9 Iron deficiency anemia, unspecified; E03.9 Hypothyroidism, unspecified; E66.9 Obesity, unspecified; I25.10 Atherosclerotic heart disease of native coronary artery without angina pectoris; R16.2 Hepatomegaly with splenomegaly, not elsewhere classified; J45.991 Cough variant asthma; K21.9 Gastro-esophageal reflux disease without esophagitis; K59.00 Constipation, unspecified; F17.210 Nicotine dependence, cigarettes, uncomplicated; Z82.49 Family history of ischemic heart disease and other diseases of the circulatory system; Z82.5 Family history of asthma and other chronic lower respiratory diseases; Z88.1 Allergy status to other antibiotic agents; Z88.0 Allergy status to penicillin; Z88.8 Allergy status to other drugs, medicaments and biological substances; Z90.49 Acquired absence of other specified parts of digestive tract
CPT/HCPCS: 36415; 43239; 71100; 76700; 76856; 80053; 83605; 84145; 84443; 85007; 85025; 85651; 86308; 86644; 86645; 86663; 86664; 86738; 87040; 87449; 87497; 87799; 88305; 88312; 88342; 94640; 94760; J0780; J1570; J1650; J2704; J7620; Q0144; Q0162; 92610; G0378

== ENCOUNTER → 2019-09-22 | Outpatient (CLI) | payer OTHER ==
[~2019-09-22] MED LIST: ALBU2.5V8 NEB; CETI10TA16 PO; GUAI5SYR PO; HYDR-2761 PO; IRON150C11 PO; LEVO150T PO; PANT40TA77 PO
--- NOTE | 2019-09-22 15:30 | KCIC ---
EXAM: Lumbar spine MRI without contrast. HISTORY: Lower extremity radiculopathy. Lower back pain. TECHNIQUE: Multiplanar, multisequence magnetic resonance imaging of the lumbar spine was performed without contrast. COMPARISON: None. FINDINGS: There is mild lumbar hyperlordosis. There is no listhesis. The vertebral bodies are normal in height. There is slight disc desiccation at T11-T12 and L1-L2. The conus terminates at L1. There is no suspicious osseous lesion. There is no fracture. There is no significant foraminal or central canal stenosis. IMPRESSION: No acute finding or significant foraminal or central canal stenosis. Electronically signed by: Tatyana Carter MD (09/22/2019 3:27 PM) [id number]
== END ==
LOC: KCIC MRI 13:38
PROVIDERS: ATTEND Family Medicine
DX: M54.42 Lumbago with sciatica, left side (principal); G63 Polyneuropathy in diseases classified elsewhere; M54.41 Lumbago with sciatica, right side; M47.817 Spondylosis without myelopathy or radiculopathy, lumbosacral region
CPT/HCPCS: 72148

== ENCOUNTER 2019-11-30 12:57 | Emergency (ER) | payer OTHER ==
[~2019-11-30] VITALS: Ht 157.5 cm; Wt 109.9 kg
[2019-11-30 14:01] LABS: BILIRUBIN,URINE NEGATIVE (NEG); CLARITY,URINE CLEAR; COLOR,URINE YELLOW; NITRITE,URINE NEGATIVE (NEG); PROTEIN,URINE NEGATIVE (NEG-TRACE); UROBILINOGEN,URINE 0.2 mg/dL (0.2 mg/dL)
[2019-11-30 14:08] LABS: RBC,URINE >40 /HPF (0-2)
[2019-11-30 14:09] LABS: BACTERIA,URINE MANY /HPF (0-FEW)
[2019-11-30] MEDS ORDERED: IV NORMAL SALINE 1000ML BAG 1,000 ML IV ONE (14:15)
[2019-11-30] MEDS ORDERED: KETOROLAC 15 MG/ML VIAL. IVP ONE (14:15)
[2019-11-30] MEDS ORDERED: ONDANSETRON PF 4 MG/2 ML VIAL. IV ONE (14:15)
--- NOTE | 2019-11-30 15:25 | RAD ---
EXAM: CT Abdomen and Pelvis with IV contrast INDICATION: Reason: Left flank pain, hematuria / Spl. Instructions: / History: TECHNIQUE: Multi-detector row CT images were acquired from the lung bases through the abdomen and pelvis with the use of IV contrast. Sagittal and coronal images were acquired from the transaxial data. All CT scans performed at this facility utilize dose optimization techniques as appropriate to the exam, including the following: Automated exposure control and adjustment of the mA and/or KV according to patient size (this includes techniques or standardized protocols for targeted exams where dose is indication/reason for exam). IV CONTRAST: Administered ORAL CONTRAST: Not administered COMPARISON: None FINDINGS: LOWER CHEST: Unremarkable LIVER: 1.1 cm oval low-density lesion in the left hepatic lobe compatible with a benign cyst. BILIARY SYSTEM: Gallbladder is surgically absent. Bile ducts are not dilated. PANCREAS: Unremarkable SPLEEN: Unremarkable ADRENALS: Unremarkable KIDNEYS & URETERS: Unremarkable BLADDER: Unremarkable REPRODUCTIVE ORGANS: Mild undulation to the uterine contour could reflect the presence of leiomyoma, better evaluated by ultrasound. GASTROINTESTINAL: The stomach, small bowel, and colon are unremarkable. The appendix is surgically absent. MESENTERY/PERITONEUM/RETROPERITONEUM: Mildly prominent mesenteric lymph nodes. No bulky adenopathy. VASCULAR: Retroaortic left renal vein. LYMPH NODES: No adenopathy OSSEOUS & SOFT TISSUES: Left gluteus medius intramuscular lipoma. IMPRESSION: No acute pathology on CT of the abdomen and pelvis without IV contrast. No findings of obstructive uropathy or calcified urinary tract stones. 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 Electronically signed by: Anuj Phillips MD (11/30/2019 3:22 PM) [id number]
[2019-11-30 15:31] LABS: BASO # 0.1 x10^3/uL (0.0-0.2); BASO % 1 % (0-3); EOS # 0.2 x10^3/uL (0.0-0.7); EOS % 2 % (0-3); HEMATOCRIT 38.5 % (36.0-47.0); HEMOGLOBIN 13.8 g/dL (12.0-15.5); LYMPH # 1.5 x10^3/uL (1.0-4.8); LYMPH % 20 % (24-48); MEAN CORPUSCULAR HEMOGLOBIN 31 pg (25-35); MEAN CORPUSCULAR HGB CONC 36 g/dL (31-37); MEAN CORPUSCULAR VOLUME 88 fL (79-100); MONO # 0.5 x10^3/uL (0.0-1.1); MONO % 7 % (0-9); NEUT # 5.4 x10^3/uL (1.8-7.7); NEUT % 71 % (31-73); PLATELET COUNT 201 x10^3/uL (140-400); RED BLOOD COUNT 4.39 x10^6/uL (3.50-5.40); RED CELL DISTRIBUTION WIDTH 13.4 % (11.5-14.5); WHITE BLOOD COUNT 7.6 x10^3/uL (4.0-11.0)
[2019-11-30 15:42] LABS: CALCIUM 8.4 mg/dL (8.5-10.1); GFR 60.5; POTASSIUM 4.4 mmol/L (3.5-5.1)
[2019-11-30 15:49] LABS: ALBUMIN 3.5 g/dL (3.4-5.0); ALBUMIN/GLOBULIN RATIO 1.2 (1.0-1.7); MAGNESIUM 2.1 mg/dL (1.8-2.4); TOTAL BILIRUBIN 1.7 mg/dL (0.2-1.0); TOTAL PROTEIN 6.5 g/dL (6.4-8.2)
[2019-11-30] MEDS ORDERED: NITR100C62 PO (15:59)
[2019-11-30] MEDS ORDERED: PHEN-318 PO (15:59)
--- NOTE | 2019-11-30 15:59 | PHYS DOC ---
Past Medical History Past Medical History: Anemia, GERD, Hypothyroid Past Surgical History: Appendectomy, Cholecystectomy Smoking Status: Never Smoker Alcohol Use: None General Adult EDM: Chief Complaint: ABDOMINAL PAIN HPI: HPI: Patient is a 44 year old female who presents emergency department with complaints of left-sided flank pain that radiates to her lower left quadrant, dysuria, nausea, urinary frequency, and urinary urgency for the last 2 days. She denies any fever, cough, vomiting, shortness of breath, chest pain, rash, or headache. The patient denies any hematuria or irregular vaginal discharge. She states that her last menstrual cycle started 2 days ago. She denies any dysmenorrhea or increased flow. She currently rates her pain a 7 out of 10 on the pain scale, she denies any alleviating factors, the pain seems to increase after urinating. Review of Systems: Review of Systems: Constitutional: Denies fever or chills. [] HENT: Denies nasal congestion or sore throat. [] Respiratory: Denies cough or shortness of breath. [] Cardiovascular: Denies chest pain or edema. [] GI: Denies vomiting, bloody stools or diarrhea. [] : See HPI Musculoskeletal: Denies joint pain; reports left low back pain Integument: Denies rash. [] Neurologic: Denies headache, Psychiatric: Denies depression or anxiety. [] Complete ROS is negative unless otherwise stated in the HPI. Heart Score: Risk Factors: Risk Factors: DM, Current or recent (<one month) smoker, HTN, HLP, family history of CAD, obesity. Risk Scores: Score 0 - 3: 2.5% MACE over next 6 weeks - Discharge Home Score 4 - 6: 20.3% MACE over next 6 weeks - Admit for Clinical Observation Score 7 - 10: 72.7% MACE over next 6 weeks - Early Invasive Strategies Current Medications: Current Medications Medications (Trade) Dose Ordered Sig/Nancy Start Time Stop Time Status Last Admin Dose Admin Ketorolac Tromethamine (Toradol 15mg Vial) 15 mg 1X ONCE 11/30/19 14:15 11/30/19 14:17 DC 11/30/19 14:52 15 MG Ondansetron HCl (Zofran) 4 mg 1X ONCE 11/30/19 14:15 11/30/19 14:17 DC 11/30/19 14:52 4 MG Sodium Chloride 1,000 ml @ 1,000 mls/hr 1X ONCE 11/30/19 14:15 11/30/19 15:14 DC 11/30/19 14:53 1,000 MLS/HR Allergies: Allergies: Allergies Coded Allergies Type Severity Reaction Last Updated Verified Penicillins Allergy Intermediate rash 12/22/18 Yes clindamycin Allergy Intermediate rash 12/22/18 Yes Physical Exam: PE: Constitutional: Well developed, well nourished, no acute distress, non-toxic appearance, obese. [] HENT: Normocephalic, atraumatic, bilateral external ears normal, nose normal. [] Eyes: PERRLA, EOMI, conjunctiva normal, no discharge. [] Neck: Normal range of motion, no stridor. [] Cardiovascular:Heart rate regular rhythm Lungs & Thorax: Respirations even and unlabored, no retractions, no respiratory distress Abdomen: soft, lower left quadrant tenderness to palpation, no rebound tenderness, no guarding Back: No CVA tenderness Skin: Warm, dry, no erythema, no rash. [] Extremities: No cyanosis, ROM intact, no edema. [] Neurologic: Alert and oriented X 3, no focal deficits noted. [] Psychologic: Affect normal, judgement normal, mood normal. [] Current Patient Data: Labs: Laboratory Tests Test 11/30/19 13:45 11/30/19 13:59 11/30/19 15:15 Urine Collection Type Unknown Urine Color Yellow Urine Clarity Clear Urine pH 6.0 (<5.0-8.0) Urine Specific [place] 1.015 (1.000-1.030) Urine Protein Negative mg/dL (NEG-TRACE) Urine Glucose (UA) Negative mg/dL (NEG) Urine Ketones (Stick) Negative mg/dL (NEG) Urine Blood Large (NEG) Urine Nitrite Negative (NEG) Urine Bilirubin Negative (NEG) Urine Urobilinogen Dipstick 0.2 mg/dL (0.2 mg/dL) Urine Leukocyte Esterase Small (NEG) Urine RBC >40 /HPF (0-2) Urine WBC 5-10 /HPF (0-4) Urine Squamous Epithelial Cells Few /LPF Urine Bacteria Many /HPF (0-FEW) Urine Mucus Mod /LPF POC Urine HCG, Qualitative Hcg negative (Negative) White Blood Count 7.6 x10^3/uL (4.0-11.0) Red Blood Count 4.39 x10^6/uL (3.50-5.40) Hemoglobin 13.8 g/dL (12.0-15.5) Hematocrit 38.5 % (36.0-47.0) Mean Corpuscular Volume 88 fL (79-100) Mean Corpuscular Hemoglobin 31 pg (25-35) Mean Corpuscular Hemoglobin Concent 36 g/dL (31-37) Red Cell Distribution Width 13.4 % (11.5-14.5) Platelet Count 201 x10^3/uL (140-400) Neutrophils (%) (Auto) 71 % (31-73) Lymphocytes (%) (Auto) 20 % (24-48) L Monocytes (%) (Auto) 7 % (0-9) Eosinophils (%) (Auto) 2 % (0-3) Basophils (%) (Auto) 1 % (0-3) Neutrophils # (Auto) 5.4 x10^3/uL (1.8-7.7) Lymphocytes # (Auto) 1.5 x10^3/uL (1.0-4.8) Monocytes # (Auto) 0.5 x10^3/uL (0.0-1.1) Eosinophils # (Auto) 0.2 x10^3/uL (0.0-0.7) Basophils # (Auto) 0.1 x10^3/uL (0.0-0.2) Sodium Level 140 mmol/L (136-145) Potassium Level 4.4 mmol/L (3.5-5.1) Chloride Level 106 mmol/L (98-107) Carbon Dioxide Level 28 mmol/L (21-32) Anion Gap 6 (6-14) Blood Urea Nitrogen 11 mg/dL (7-20) Creatinine 1.0 mg/dL (0.6-1.0) Estimated GFR (Cockcroft-Gault) 60.5 BUN/Creatinine Ratio 11 (6-20) Glucose Level 95 mg/dL (70-99) Calcium Level 8.4 mg/dL (8.5-10.1) L Magnesium Level 2.1 mg/dL (1.8-2.4) Total Bilirubin 1.7 mg/dL (0.2-1.0) H Aspartate Amino Transferase (AST) 19 U/L (15-37) Alanine Aminotransferase (ALT) 23 U/L (14-59) Alkaline Phosphatase 49 U/L (46-116) Total Protein 6.5 g/dL (6.4-8.2) Albumin 3.5 g/dL (3.4-5.0) Albumin/Globulin Ratio 1.2 (1.0-1.7) Lipase 81 U/L (73-393) Laboratory Tests 11/30/19 15:15 Laboratory Tests 11/30/19 15:15 Vital Signs: Vital Signs Date Time Temp Pulse Resp B/P (MAP) Pulse Ox O2 Delivery O2 Flow Rate FiO2 11/30/19 13:33 99.1 135/73 (93) 95 99.1 EKG: EKG: [] Radiology/Procedures: Radiology/Procedures: PROCEDURE: CT ABDOMEN PELVIS WO CONTRAST EXAM: CT Abdomen and Pelvis with IV contrast INDICATION: Reason: Left flank pain, hematuria / Spl. Instructions: / History: TECHNIQUE: Multi-detector row CT images were acquired from the lung bases through the abdomen and pelvis with the use of IV contrast. Sagittal and coronal images were acquired from the transaxial data. All CT scans performed at this facility utilize dose optimization techniques as appropriate to the exam, including the following: Automated exposure control and adjustment of the mA and/or KV according to patient size (this includes techniques or standardized protocols for targeted exams where dose is indication/reason for exam). IV CONTRAST: Administered ORAL CONTRAST: Not administered COMPARISON: None FINDINGS: LOWER CHEST: Unremarkable LIVER: 1.1 cm oval low-density lesion in the left hepatic lobe compatible with a benign cyst. BILIARY SYSTEM: Gallbladder is surgically absent. Bile ducts are not dilated. PANCREAS: Unremarkable SPLEEN: Unremarkable ADRENALS: Unremarkable KIDNEYS & URETERS: Unremarkable BLADDER: Unremarkable REPRODUCTIVE ORGANS: Mild undulation to the uterine contour could reflect the presence of leiomyoma, better evaluated by ultrasound. GASTROINTESTINAL: The stomach, small bowel, and colon are unremarkable. The appendix is surgically absent. MESENTERY/PERITONEUM/RETROPERITONEUM: Mildly prominent mesenteric lymph nodes. No bulky adenopathy. VASCULAR: Retroaortic left renal vein. LYMPH NODES: No adenopathy OSSEOUS & SOFT TISSUES: Left gluteus medius intramuscular lipoma. IMPRESSION: No acute pathology on CT of the abdomen and pelvis without IV contrast. No findings of obstructive uropathy or calcified urinary tract stones. Patient does have a retroaortic left renal vein.[] Course & Med Decision Making: Course & Med Decision Making Pertinent Labs and Imaging studies reviewed. (See chart for details) Patient is a 44-year-old female who presented emergency room with a chief complaint of left flank pain. CBC is unremarkable; CMP is unremarkable; urinalysis is concerning for a large amount of blood with greater than 40 red blood cells, 5-10 white blood cells, few squamous cells, many bacteria. Due to the patient reporting left flank pain I am unable to explain the blood in her urine is strictly being caused by her menstrual cycle. Therefore a CT of her abdomen/pelvis was done. CT did not reveal any obstructive uropathy or calcified urinary tract stones. While in the emergency department patient received a liter normal saline, 4 mg of Zofran, she reported some relief of the symptoms after the medications. Patient's vital signs are stable. Patient of urinary tract infection and nonspecific abdominal pain. Prescriptions written for nitrofurantoin and Pyridium. Encourage patient increase clear fluids, avoid bladder irritants, and follow-up with her primary care doctor in 1 to 2 days. Patient verbalized an understanding of home care, medications, follow-up, and return to ED instructions and was in agreement with the plan of care. [] Dragon Disclaimer: Dragon Disclaimer: This electronic medical record was generated, in whole or in part, using a voice recognition dictation system. Departure Departure Impression: Primary Impression: UTI (urinary tract infection) Qualified Codes: N30.00 - Acute cystitis without hematuria Additional Impression: Abdominal pain Qualified Codes: R10.32 - Left lower quadrant pain Disposition: 01 [facility] HOME SELF CARE/HOMELESS Condition: STABLE Referrals: CONRAD CHUNG MD (PCP) Patient Instructions: Urinary Tract Infection, [id number] Additional Instructions: Fill prescription(s) and use as directed. Avoid bladder irritants such as caffeine, carbonation, and spicy foods. Increase clear fluids. Follow up with your primary care doctor in 1-2 days, return to the ER if symptoms worsen. Scripts Phenazopyridine Hcl (PYRIDIUM) 200 Mg Tablet 1 TAB PO TID for urinary discomfort for 3 Days, #9 TAB 0 Refills Prov: JASE DOMINGO APRN 11/30/19 Nitrofurantoin Monohyd/M-Cryst (MACROBID 100 MG CAPSULE) 100 Mg Capsule 1 CAP PO BID for 7 Days, #14 CAP 0 Refills Prov: JASE DOMINGO APRN 11/30/19 JASE DOMINGO APRN Nov 30, 2019 15:59
[2019-11-30 16:30] VITALS: BP 130/78
== END 2019-11-30 16:40 | disposition home or self-care (01) ==
LOC: ER 12:57
DX: N30.00 Acute cystitis without hematuria (principal); R10.32 Left lower quadrant pain; R35.0 Frequency of micturition; D64.9 Anemia, unspecified; K21.9 Gastro-esophageal reflux disease without esophagitis; E03.9 Hypothyroidism, unspecified; Z90.49 Acquired absence of other specified parts of digestive tract; Z90.89 Acquired absence of other organs; Z88.0 Allergy status to penicillin; Z88.1 Allergy status to other antibiotic agents
CPT/HCPCS: 36415; 74176; 80053; 81001; 81025; 83690; 83735; 85025; 87086; 96361; 96374; 96375; 99284; J1885; J2405; J7030